=== PATIENT | male | born 1935 | race Caucasian/White ===

== ENCOUNTER 2017-10-15 01:02 | Inpatient (IN) | payer OTHER, MEDICARE ==
--- NOTE | 2017-10-15 01:10 | PDOC ---
History of Present Illness - General History Source: Patient Exam Limitations: No Limitations - History of Present Illness Initial Comments: 10/15/17 03:18 Patient is a 82 year old male with a significant past medical history of Prostate CA, cardiac stent, Tremors, who presents to the ED with complaints of right his pain, s/p fall that occured 1 hour prior to ED arrival. Patient reports dancing with friend when he slipped fell, landing on his right hip. He reports experiencing immediate pain following the fall, stating he was unable to get up secondary to the pain. Patient states he did not hit his head and remembers the entire fall. Denies chest pain, Sob. Denies nausea, vomiting. Denies fevers, chills. Denies loss of consciousness, change in vision, headache. Denies any other symptoms. Allergies: None Social history: Former smoker (Last 1987). Former drinker (Last 1981). No illicit drugs. Surgical history: Cardiac stents x13. Left leg sleeve s/p aneurysm. PMD: Not on staff. <Luis Hawkins - Last Filed: 10/15/17 03:20> <Patricia Lynn - Last Filed: 10/17/17 15:36> - General Stated Complaint: FALL Time Seen by Provider: 10/15/17 01:10 Past History <Luis Hawkins - Last Filed: 10/15/17 03:20> <Patricia Lynn - Last Filed: 10/17/17 15:36> - Past Medical History Allergies/Adverse Reactions: Allergies Allergy/AdvReac Type Severity Reaction Status Date / Time No Known Allergies Allergy Verified 10/15/17 01:34 Home Medications: Ambulatory Orders Atorvastatin Calcium 40 mg PO DAILY 10/15/17 Clopidogrel Bisulfate [Plavix] 75 mg PO DAILY 10/15/17 Isosorbide Mononitrate [Isosorbide Mononitrate ER] 120 mg PO DAILY 10/15/17 Primidone [Mysoline -] 50 mg PO BID 10/15/17 Sertraline HCl [Sertraline HCl] 50 mg PO DAILY 10/15/17 Review of Systems - Review of Systems Able to Perform ROS?: Yes Comments:: 10/15/17 03:18 GENERAL/CONSTITUTIONAL: No fever or chills. No weakness. HEAD, EYES, EARS, NOSE AND THROAT: No change in vision. No ear pain or discharge. No sore throat. CARDIOVASCULAR: No chest pain or shortness of breath. RESPIRATORY: No cough, wheezing, or hemoptysis. GASTROINTESTINAL: No nausea, vomiting, diarrhea or constipation. GENITOURINARY: No dysuria, frequency, or change in urination. MUSCULOSKELETAL: +Right hip pain. No muscle swelling No neck or back pain. SKIN: No rash NEUROLOGIC: No headache, vertigo, loss of consciousness, or change in strength/ sensation. ENDOCRINE: No increased thirst. No abnormal weight change. HEMATOLOGIC/LYMPHATIC: No anemia, easy bleeding, or history of blood clots. ALLERGIC/IMMUNOLOGIC: No hives or skin allergy. All Other Systems: Reviewed and Negative <Luis Hawkins - Last Filed: 10/15/17 03:20> *Physical Exam - Vital Signs Last Vital Signs Temp Pulse Resp BP Pulse Ox 97.9 F 64 16 162/79 96 10/15/17 01:10 10/15/17 01:10 10/15/17 01:10 10/15/17 01:10 10/15/17 01:10 - Physical Exam Comments: 10/15/17 03:20 GENERAL: Awake, alert, and fully oriented, in no acute distress HEAD: No signs of trauma EYES: PERRLA, EOMI, sclera anicteric, conjunctiva clear ENT: Auricles normal inspection, hearing grossly normal, nares patent, oropharynx clear without exudates. Moist mucosa NECK: Normal ROM, supple, no lymphadenopathy, JVD, or masses LUNGS: Breath sounds equal, clear to auscultation bilaterally. No wheezes, and no crackles HEART: Regular rate and rhythm, normal S1 and S2, no murmurs, rubs or gallops ABDOMEN: Soft, nontender, normoactive bowel sounds. No guarding, no rebound. No masses EXTREMITIES: +Right leg externally rotated and shortened. +Pain on right hip with movement of leg. Normal range of motion, no edema. No clubbing or cyanosis. No cords, erythema, or tenderness NEUROLOGICAL: Cranial nerves II through XII grossly intact. Normal speech, normal gait SKIN: Warm, Dry, normal turgor, no rashes or lesions noted. <Luis Hawkins - Last Filed: 10/15/17 03:20> ED Treatment Course - LABORATORY CBC & Chemistry Diagram: 10/15/17 01:41 10/15/17 01:41 - ADDITIONAL ORDERS Additional order review: Laboratory Results 10/15/17 10/15/17 10/15/17 01:41 01:41 01:41 PT with INR 11.10 INR 0.98 PTT (Actin FS) Sodium 142 Potassium 4.3 Chloride 107 Carbon Dioxide 26 Anion Gap 9 BUN 23 H Creatinine 1.1 Creat Clearance w eGFR > 60 Random Glucose 212 H Calcium 8.6 Total Bilirubin 0.3 AST 13 L ALT 21 Alkaline Phosphatase 76 Total Protein 6.5 Albumin 3.8 Blood Type B POSITIVE Antibody Screen Negative 10/15/17 01:41 PT with INR INR PTT (Actin FS) 24.0 L Sodium Potassium Chloride Carbon Dioxide Anion Gap BUN Creatinine Creat Clearance w eGFR Random Glucose Calcium Total Bilirubin AST ALT Alkaline Phosphatase Total Protein Albumin Blood Type Antibody Screen 10/15/17 01:41 RBC 4.03 MCV 89.5 MCHC 34.3 RDW 13.5 MPV 7.6 Neutrophils % 69.2 Lymphocytes % 16.4 Monocytes % 9.3 Eosinophils % 3.7 Basophils % 1.4 - Medications Given in the ED: ED Medications Discontinued Medications Generic Name Dose Route Start Last Admin Trade Name Freq PRN Reason Stop Dose Admin Morphine Sulfate 2 mg 10/15/17 01:30 10/15/17 02:03 Morphine Injection - IVPUSH 10/15/17 01:31 2 mg ONCE ONE Administration <Luis Hawkins - Last Filed: 10/15/17 03:20> - LABORATORY CBC & Chemistry Diagram: 10/17/17 13:50 10/17/17 06:35 <Patricia Lynn - Last Filed: 10/17/17 15:36> Medical Decision Making - Medical Decision Making 10/15/17 04:39 Pt tripped while he was dancing a slow foxtrot and he landed on his right hip, resulting in an intertrochanteric fracture. Pt has no other complaints. Pt has DM and CAD -13 stents in his heart - pt has a hx of prostate cancer 10/17/17 15:36 Pt admitted for his hip fx. <Patricia Lynn - Last Filed: 10/17/17 15:36> *DC/Admit/Observation/Transfer - Attestations Scribe Attestion: 10/15/17 03:18 Documentation prepared by Luis Hawkins, acting as director of medical review for Patricia Lynn MD/DO. <Luis Hawkins - Last Filed: 10/15/17 03:20> - Discharge Dispostion Admit: Yes <Patricia Lynn - Last Filed: 10/17/17 15:36> Diagnosis at time of Disposition: Hip fracture, Intertrochanteric fracture of right femur - Discharge Dispostion Condition at time of disposition: Guarded
[2017-10-15] MEDS ORDERED: morphine CARPU-JECT 2 MG/1 ML DISP.SYRIN IVPUSH ONE ×2 (01:30→10:34)
[2017-10-15] MEDS ORDERED: MORPHINE SULFATE 10 MG/1 ML *VIAL ONE ×4 (01:36→18:51)
[2017-10-15 01:53] LABS: BASO % 1.4 % (0-2.0); EOS % 3.7 % (0-4.5); HEMATOCRIT 36.1 % (35.4-49); HEMOGLOBIN 12.4 GM/dL (11.7-16.9); LYMPH % 16.4 % (8-40); MCH 30.7 pg (25.7-33.7); MCHC 34.3 g/dl (32.0-35.9); MEAN CELL VOLUME 89.5 fl (80-96); MEAN PLT VOLUME 7.6 fl (7.5-11.1); MONO % 9.3 % (3.8-10.2); NEUT % 69.2 % (42.8-82.8); PLATELET COUNT 166 K/MM3 (134-434); RBC 4.03 M/mm3 (4.00-5.60); RDW 13.5 % (11.9-15.9); WHITE BLOOD COUNT 6.5 K/mm3 (4.0-10.0)
[2017-10-15 02:04] LABS: INR 0.98 (0.82-1.09); PROTHROMBIN TIME (PATIENT) 11.1 SEC (9.98-11.88)
[2017-10-15 02:17] LABS: ALBUMIN 3.8 g/dl (3.4-5.0); ALK PHOS 76 U/L (45-117); ANION GAP 9 (8-16); BILIRUBIN,TOTAL 0.3 mg/dL (0.2-1.0); BLOOD UREA NITROGEN 23 mg/dL (7-18); CALCIUM 8.6 mg/dL (8.5-10.1); CHLORIDE 107 mmol/L (98-107); CO2 26 mmol/L (21-32); CREATININE 1.1 mg/dL (0.7-1.3); GLUCOSE,RANDOM 212 mg/dL (74-106); POTASSIUM 4.3 mmol/L (3.5-5.1); SGOT/AST 13 U/L (15-37); SGPT/ALT 21 U/L (12-78); SODIUM 142 mmol/L (136-145); TOT PROT 6.5 g/dl (6.4-8.2)
[2017-10-15] MEDS ORDERED: ACETAMINOPHEN 1000 MG/100 ML VIAL (NON FORMULARY) IVPB ONE (03:04)
--- NOTE | 2017-10-15 03:06 | PN ---
Teaching Attending Note Name of Resident: Eduar Rangel ATTENDING PHYSICIAN STATEMENT I saw and evaluated the patient. I reviewed the resident's note and discussed the case with the resident. I agree with the resident's findings and plan as documented. SUBJECTIVE: 82 M with pmhx. of HTN, hld, cardiac stent X 13, NIDDM who presents after mechanical fall. Pt. was dancing when he slipped and fell. No chest pain, pressure or shortness of breath. Notes he missed his last cardio appt. begining of this month due to the flu. Denies any headache, dizziness, or lightheadedness. OBJECTIVE: Physical: VS: Vital Signs Period Temp Pulse Resp BP Sys/Hernandez Pulse Ox Last 24 Hr 97.9 F 64 16 162/79 96 GEN: NAD, Resting in bed, AA0X3 HEENT: NCAT, PERRL, throat without erythema or exudates CARD: RRR S1, S2 RESP: CTAB ABD: BSx4, NTD to palpation EXT: - C/C/E, R. Leg externally rotated CBCD WBC 6.5 K/mm3 (4.0-10.0) 10/15/17 01:41 RBC 4.03 M/mm3 (4.00-5.60) 10/15/17 01:41 Hgb 12.4 GM/dL (11.7-16.9) 10/15/17 01:41 Hct 36.1 % (35.4-49) 10/15/17 01:41 MCV 89.5 fl (80-96) 10/15/17 01:41 MCHC 34.3 g/dl (32.0-35.9) 10/15/17 01:41 RDW 13.5 % (11.9-15.9) 10/15/17 01:41 Plt Count 166 K/MM3 (134-434) 10/15/17 01:41 MPV 7.6 fl (7.5-11.1) 10/15/17 01:41 CMP Sodium 142 mmol/L (136-145) 10/15/17 01:41 Potassium 4.3 mmol/L (3.5-5.1) 10/15/17 01:41 Chloride 107 mmol/L (98-107) 10/15/17 01:41 Carbon Dioxide 26 mmol/L (21-32) 10/15/17 01:41 Anion Gap 9 (8-16) 10/15/17 01:41 BUN 23 mg/dL (7-18) H 10/15/17 01:41 Creatinine 1.1 mg/dL (0.7-1.3) 10/15/17 01:41 Creat Clearance w eGFR > 60 (>60) 10/15/17 01:41 Random Glucose 212 mg/dL (74-106) H 10/15/17 01:41 Calcium 8.6 mg/dL (8.5-10.1) 10/15/17 01:41 Total Bilirubin 0.3 mg/dL (0.2-1.0) 10/15/17 01:41 AST 13 U/L (15-37) L 10/15/17 01:41 ALT 21 U/L (12-78) 10/15/17 01:41 Alkaline Phosphatase 76 U/L (45-117) 10/15/17 01:41 Total Protein 6.5 g/dl (6.4-8.2) 10/15/17 01:41 Albumin 3.8 g/dl (3.4-5.0) 10/15/17 01:41 RIGHT HIP XRAY- R. Intertrochanteric Fx EKG: NSR, TWI lateral leads (no prior EKG in system) CXR-NO Acute process ASSESSMENT AND PLAN: 82 M with hx of 1.) R. Intertrochanteric Fx - NPO - Type & Screen - Ortho consult - Pain Control - Repeat CBC - Hold ASA/Plavix 2.) Hx. of CAD w. Stents - TWI on EKG - TROP - Repeat EKG - Cardio consult - Obtain records of medications and prior lund at [facility] [employer] 3.) DM - FS - RAISS 4.) Dvt Ppx - As per Ortho Place in Open Utility
[2017-10-15] MEDS ORDERED: ACETAMINOPHEN INJECTION 100 ML IVPB ONE (03:27)
--- NOTE | 2017-10-15 03:58 | HP ---
CHIEF COMPLAINT: Mechanical fall HISTORY OF PRESENT ILLNESS: 82 y/o m with PMH of HTN, HLD, DM CAD( [address]) prsotate cancer( s/p RT and chemo) who was brought to ED after fall and found to have intertrochntric fracture. Patient reports that he was dancing and slipped. Denies lightheadedness, dizziness, chest pain, sob, palpitations, nausea, vomiting Relay Worker Dr Rosario [phone] ER course was notable for: (1) xray : intertrochntric fracture (2)cbc, cmp, pt/inr (3)blood type and screen, ekg Recent Travel: no PAST MEDICAL HISTORY: htn, dm, hld, cad, ca prostate ( s/p RT and chemo) PAST SURGICAL HISTORY: Hernia, left femoral artery aneurysm repair Social History: Smoking: stopped in 1981 Alcohol: stopped in 1982 Family History: denies Allergies No Known Allergies Allergy (Verified 10/15/17 01:34) HOME MEDICATIONS: REVIEW OF SYSTEMS CONSTITUTIONAL: Absent: fever, chills, diaphoresis, HEENT: Absent: rhinorrhea, nasal congestion, throat pain, t CARDIOVASCULAR: Absent: chest pain, syncope, palpitations, irregular heart rate, lightheadedness , peripheral edema RESPIRATORY: Absent: cough, shortness of breath, dyspnea with exertion, orthopnea, wheezing, GASTROINTESTINAL: Absent: abdominal pain, abdominal distension, nausea, GENITOURINARY: Absent: dysuria, frequency, urgency, hesitancy, MUSCULOSKELETAL: pain in left leg at fracture site SKIN: Absent: rash, itching, pallor NEUROLOGIC: Absent: headache, focal weakness or paresthesias, dizziness, unsteady gait, seizure, mental status changes, bladder or bowel incontinence PSYCHIATRIC: Absent: anxiety, depression, PHYSICAL EXAMINATION Vital Signs - 24 hr 10/15/17 01:10 Temperature 97.9 F Pulse Rate 64 Respiratory 16 Rate Blood Pressure 162/79 O2 Sat by Pulse 96 Oximetry (%) GENERAL: Awake, alert, and fully oriented, HEAD: Normal with no signs of trauma. EARS, NOSE, THROAT: Ears normal, nares patent, oropharynx clear without exudates. dry mucus membrane NECK: Normal range of motion, supple without lymphadenopathy, JVD, LUNGS: Breath sounds equal, clear to auscultation bilaterally. No wheezes, and no crackles. No accessory muscle use. HEART: Regular rate and rhythm, normal S1 and S2 without murmur, rub or gallop. ABDOMEN: Soft, nontender, not distended, normoactive bowel sounds, no guarding, no rebound, no masses. No hepatomegaly or splenomegaly. UPPER EXTREMITIES: 2+ pulses, warm, well-perfused. No cyanosis. chronic tremors LOWER EXTREMITIES: warm, No calf tenderness. No peripheral edema. right leg short and externally rotated NEUROLOGICAL: Cranial nerves II-XII intact. Normal speech. PSYCHIATRIC: Cooperative. Good eye contact. SKIN: Warm, dry, Laboratory Results - last 24 hr 10/15/17 10/15/17 10/15/17 01:41 01:41 01:41 WBC 6.5 RBC 4.03 Hgb 12.4 Hct 36.1 MCV 89.5 MCH 30.7 MCHC 34.3 RDW 13.5 Plt Count 166 MPV 7.6 Neutrophils % 69.2 Lymphocytes % 16.4 Monocytes % 9.3 Eosinophils % 3.7 Basophils % 1.4 PT with INR INR PTT (Actin FS) 24.0 L Sodium Potassium Chloride Carbon Dioxide Anion Gap BUN Creatinine Creat Clearance w eGFR Random Glucose Calcium Total Bilirubin AST ALT Alkaline Phosphatase Total Protein Albumin Blood Type B POSITIVE Antibody Screen Negative 10/15/17 10/15/17 01:41 01:41 WBC RBC Hgb Hct MCV MCH MCHC RDW Plt Count MPV Neutrophils % Lymphocytes % Monocytes % Eosinophils % Basophils % PT with INR 11.10 INR 0.98 PTT (Actin FS) Sodium 142 Potassium 4.3 Chloride 107 Carbon Dioxide 26 Anion Gap 9 BUN 23 H Creatinine 1.1 Creat Clearance w eGFR > 60 Random Glucose 212 H Calcium 8.6 Total Bilirubin 0.3 AST 13 L ALT 21 Alkaline Phosphatase 76 Total Protein 6.5 Albumin 3.8 Blood Type Antibody Screen ASSESSMENT/PLAN: 82 y/o m with PMH of HTN, HLD, DM CAD( [address]) prsotate cancer( s/p RT and chemo) who was brought to ED after fall and found to have intertrochntric fracture intertrochatric fracture R side. NPO blood type and screen pending INR pending pain control with morphine. ortho consult hold aspirin and plavix for now HTN monitor need to confirm meds HLD on lipitor get lipid profile. CAD EKG shows T wave incersion in lateral leads. Bas line ekg not available. cardiac monitoring repeat ekg and trop i in morning Cardiology consult Hold aspirin and plavix for surgery. His wastewater analyst DR Rosario [phone]. Need to call wastewater analyst for further information. DM hold metformin BGM q6h novalog insulin sliding scale. fluid: NS 42ml/hr electrolyte: repeat in am nutrition: NPO for now DVT pro: scd on left leg Gi pro: zantac dispo: tele Visit type - Emergency Visit Emergency Visit: Yes Care time: The patient presented to the Emergency Department on the above date and was hospitalized for further evaluation of their emergent condition. - New Patient This patient is new to me today: Yes Date on this admission: 10/15/17 - Critical Care Critical Care patient: No
[2017-10-15] MEDS: SODIUM CHLORIDE 1,000 ML IV SCH (04:31)
[2017-10-15] MEDS: MORPHINE SULFATE 10 MG/1 ML *VIAL IVPUSH PRN ×3 (06:47→18:55)
[2017-10-15 06:57] LABS: URINE APPEARANCE CLEAR; URINE BILIRUBIN NEGATIVE (NEGATIVE); URINE BLOOD NEGATIVE (NEGATIVE); URINE COLOR YELLOW; URINE GLUCOSE (UA) 1+ (NEGATIVE); URINE KETONE NEGATIVE (NEGATIVE); URINE LEUK ESTERASE NEGATIVE (NEGATIVE); URINE NITRITE NEGATIVE (NEGATIVE); URINE PROTEIN NEGATIVE (NEGATIVE)
[2017-10-15] MEDS: INSULIN SLIDING SCALE (NOVOLOG) 1 VIAL SQ SCH ×4 (07:48→23:32)
[2017-10-15 08:41] LABS: BASO % 0.9 % (0-2.0); EOS % 2.4 % (0-4.5); HEMATOCRIT 33.8 % (35.4-49); HEMOGLOBIN 11.5 GM/dL (11.7-16.9); MCH 30.4 pg (25.7-33.7); MEAN CELL VOLUME 89.2 fl (80-96); MEAN PLT VOLUME 7.6 fl (7.5-11.1); MONO % 11.3 % (3.8-10.2); NEUT % 71.4 % (42.8-82.8); PLATELET COUNT 152 K/MM3 (134-434); RBC 3.79 M/mm3 (4.00-5.60); RDW 13.2 % (11.9-15.9); WHITE BLOOD COUNT 9.1 K/mm3 (4.0-10.0)
[2017-10-15 08:48] LABS: ALBUMIN 3.5 g/dl (3.4-5.0); ANION GAP 7 (8-16); BILIRUBIN,TOTAL 0.4 mg/dL (0.2-1.0); BLOOD UREA NITROGEN 20 mg/dL (7-18); CALCIUM 7.5 mg/dL (8.5-10.1); CHLORIDE 109 mmol/L (98-107); CHOLESTEROL 113 mg/dL (50-200); CO2 27 mmol/L (21-32); GLUCOSE,RANDOM 111 mg/dL (74-106); LDL CHOLESTEROL (ONLY SJRH) 67 mg/dL (5-100); MAGNESIUM 1.9 mg/dL (1.8-2.4); PHOSPHOROUS 3.1 mg/dL (2.5-4.9); SGOT/AST 13 U/L (15-37); SGPT/ALT 19 U/L (12-78); SODIUM 143 mmol/L (136-145); TOT PROT 6.1 g/dl (6.4-8.2); TRIGLYCERIDES 99 mg/dL (35-160)
[2017-10-15 08:49] LABS: ALK PHOS 72 U/L (45-117); HDL CHOLESTEROL 35 mg/dL (40-60)
[2017-10-15] MEDS ORDERED: FAMOTIDINE IV 20 MG/12 ML VIAL IVPUSH SCH (10:00)
--- NOTE | 2017-10-15 10:09 | CON.ORTH ---
Consult Reason for Consultation:: right hip fx - Alcohol/Substance Use Hx Alcohol Use: Yes - Smoking History Smoking history: Former smoker Have you smoked in the past 12 months: No If you are a former smoker, when did you quit?: 1987 Home Medications - Allergies Allergies/Adverse Reactions: Allergies Allergy/AdvReac Type Severity Reaction Status Date / Time No Known Allergies Allergy Verified 10/15/17 01:34 - Home Medications Home Medications: Ambulatory Orders Unobtainable [Unobtainable] 10/15/17 Physical Exam for Ortho Vital Signs: Vital Signs Temperature 98.0 F 10/15/17 07:50 Pulse Rate 90 10/15/17 07:50 Respiratory Rate 20 10/15/17 07:50 Blood Pressure 160/80 10/15/17 07:50 O2 Sat by Pulse Oximetry (%) 97 10/15/17 07:50 Labs: CBC, BMP 10/15/17 07:42 10/15/17 07:42 INR, PTT INR 0.98 (0.82-1.09) 10/15/17 01:41 - Lower Extremity Hip: Yes: Right, Decreased ROM, Leg Externally Rotated, Leg Shortened, Pain, Swelling (nvi) Imaging - Results X-ray: Report Reviewed, Image Reviewed Assessment/Plan 82 y/o m with PMH of HTN, HLD, DM CAD( [address]) prostate cancer( s/p RT and chemo) who was brought to ED after fall and found to have IT fracture. Patient reports that he was dancing and slipped. Denies lightheadedness, dizziness, chest pain, sob, palpitations, nausea, vomiting. a/p right IT fx Risks and benefits were d/w pt in detail will need right IM gamma nail OR once cleared tentatively for tomorrow afternoon pending clearance surgical clearance NPo after midnight hold ASA and plavix d/w Dr. Romano
--- NOTE | 2017-10-15 13:02 | EKG ---
Test Reason : Blood Pressure : / mmHG Vent. Rate : 065 BPM Atrial Rate : 065 BPM P-R Int : 176 ms QRS Dur : 108 ms QT Int : 424 ms P-R-T Axes : 069 -27 103 degrees QTc Int : 440 ms NORMAL SINUS RHYTHM T WAVE ABNORMALITY, CONSIDER LATERAL ISCHEMIA ABNORMAL ECG NO PREVIOUS ECGS AVAILABLE Confirmed by SUE REICH MD ([id number]) on 10/15/2017 1:01:53 PM Referred By: Confirmed By:SUE REICH MD
--- NOTE | 2017-10-15 14:32 | CON.CARD ---
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 Patient reports dancing with friend when he slipped fell, landing on his right hip, no syncope/presyncope. Of note, this is his 2nd fall this year. No angina since last JANES. Is overall active, can walk up multiple flights of steps without stopping. + rt hip pain, + erythema of rt eye --> recent burst blood vessel. recent uri with cough, congestion last month --> resolved. no h/o chf, cva. Denies chest pain, Sob, orthopnea, pnd, le edema. Denies f/c/s, n/v/d, visual disturbances, rash, headache. Cards: [place] [place] pmhx/pshx: per phi, Left leg sleeve s/p aneurysm. Social history: Former smoker (Last 1987). Former drinker (Last 1981). No illicit drugs. fam hx: no premature cad ros: per hpi Ambulatory Orders Atorvastatin Calcium 40 mg PO DAILY 10/15/17 Clopidogrel Bisulfate [Plavix] 75 mg PO DAILY 10/15/17 Isosorbide Mononitrate [Isosorbide Mononitrate ER] 120 mg PO DAILY 10/15/17 Sertraline HCl [Sertraline HCl] 50 mg PO DAILY 10/15/17 Per office notes, additionally on asa 81 mg/day, norvasc 10 mg/day, Current Medications Sodium Chloride (Normal Saline -) 1,000 mls @ 42 mls/hr IV ASDIR AYALA Last Admin: 10/15/17 04:31 Dose: 42 mls/hr Famotidine (Pepcid 20 Mg/12 Ml Push) 20 mg in 12 mls @ 144 mls/hr IVPUSH BID AYALA Last Admin: 10/15/17 10:08 Dose: 144 mls/hr Insulin Aspart (Novolog Vial Sliding Scale -) 1 vial SQ ACHS AYALA PRN Reason: Protocol Last Admin: 10/15/17 11:12 Dose: Not Given Morphine Sulfate (Morphine Injection -) 2 mg IVPUSH Q4H PRN PRN Reason: PAIN LEVEL 1-5 Last Admin: 10/15/17 06:47 Dose: 2 mg Vital Signs - 24 hr 10/15/17 10/15/17 10/15/17 01:10 06:59 07:50 Temperature 97.9 F 98.0 F Pulse Rate 64 Pulse Rate [ 98 H 90 Right Apical] Respiratory 16 16 20 Rate Blood Pressure 162/79 Blood Pressure 157/78 160/80 [Right Arm] O2 Sat by Pulse 96 97 97 Oximetry (%) 10/15/17 10/15/17 11:31 14:24 Temperature 98.0 F 98.0 F Pulse Rate Pulse Rate [ 89 75 Right Apical] Respiratory 20 19 Rate Blood Pressure Blood Pressure 156/80 143/85 [Right Arm] O2 Sat by Pulse 98 98 Oximetry (%) Intake & Output 10/13/17 10/14/17 10/15/17 10/16/17 07:59 07:59 07:59 07:59 Weight 192 lb nad, calm jvd flat, neck supple erythema of eye rrr nl s1, s2 no mrg ctab, nl effort + bs soft nt nd trace edema, no c/c diminished dp/pt no carotid bruits no jaundice, diaphoresis aaox3 CBC, BMP 10/15/17 07:42 10/15/17 07:42 Laboratory Tests 10/15/17 07:42 Magnesium 1.9 Total Bilirubin 0.4 D AST 13 L ALT 19 Alkaline Phosphatase 72 Troponin I < 0.02 Albumin 3.5 Triglycerides 99 Cholesterol 113 Total LDL Cholesterol 67 HDL Cholesterol 35 L ekg 09/2017: nsr, leftward axis. lateral twi. similar to priors. (longstanding lateral twi on prior ekg's from [facility] [place]). tele: sr cxr: no acute pathology cath [facility] [place] 04/2017 (for angina): lvedp 14. EF 60%, no rwma. mild disease in lad and lcx. patent plad, pLcx, dLcx, om1, om2 stents. mild disease in prrca and mrca. patent mrca stent. 50-60% drca with prior stent, RPL1 90-95% ISR --> [place]. [place] [facility] [place]l lv/rv size/fn. diastolic dysfunction. 1+ ar, + mac, 1+ mr. no sig phtn. 4.0 cm sinus, 3.9 asc, --> smaller on cta. 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 mechanical fall s/p hip fracture - 2nd fall this year. states he has difficulty with balance and ? neuropathy. - ongoing mgm't per pmd/surgery. Pre-op clearance - patient ~ 6 mo since janes. Given necessity of surgery, reasonable to hold plavix and con't asa monotherapy alone shruthi-operatively. last dose of plavix saturday 10/14. Did not receive asa today, will order. Discussed with interventionalist at [facility] [place] and they are in agreement. Patient's software development specialist Dr. Rosario to be notified. Discussed with inpatient pmd. - Patient with good functional capacity and is asx/stable from CV perspective with preserved EF. No need for further CV testing prior to surgery. Based on RCRI, age and functional capacity, patient with low-intermediate risk for shruthi- operative CV events. Patient counseled on risk. CAD s/p NQWMI and multiple ISR/PCI (most recent 04/2017) on DAPT/HL - nl LVEF, no anginal sx's. - multiple + prior stents to at least plad, pLcx, dLcx, om1, om2, prrca, mrca, drca, RPL with ISR and recurrent stent placement to at least om2, RPL and possibly more. - On norvasc and imdur as anti-anginal. Con't statin - Shruthi-operative anti-platelet mgmt as mentioned above. htn - angioedema to ACEI - resume home regimen. monitor. 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 - followed by vascular as outpatient > 40 min spent reviewing/obtaining outside hospital records and coordinating care with interventional cardiology and pmd
--- NOTE | 2017-10-15 14:44 | PN ---
Teaching Attending Note Name of Resident: Valeria Perry ATTENDING PHYSICIAN STATEMENT I saw and evaluated the patient. I reviewed the resident's note and discussed the case with the resident. I agree with the resident's findings and plan as documented. SUBJECTIVE:continues to have pain but has only requested pain medication once. states he was dancing and slipped. denies any symptoms prior to or after the fall. Saw his director of customer service a few months ago and had cath with stent placement. denies CP, SOB, fever, chills, N/V/C/D, no LOC. did not hit his head. no CP or dysp OBJECTIVE: Last Vital Signs Temp Pulse Resp BP Pulse Ox 98.0 F 75 19 143/85 98 10/15/17 14:24 10/15/17 14:24 10/15/17 14:24 10/15/17 14:24 10/15/17 14:24 General NAD CV S1 S2 RRR no murmur/rub/gallop Lungs CTA B/L no wheezing/rales/rhonchi Extremities RLE shortened and externally rotated ASSESSMENT AND PLAN: 82yo M with PMH HTN, dyslipidemia and CAD s/p 13 stents with mechanical fall and R intertrochanteric fracture 1. R intertrochanteric fracture- s/p mechanical fall. NPO tonight for gamma nail in the AM. encouraged pt to request pain medications. will hold asa/ plavix. ortho on board. cardio eval prior to surgery. PT assessment post surgery 2. HTN- above goal.likely due to pain. resume home medications. consider increasing medications if remains uncontrolled. 3. CAD s/p stent- hold asa/plvix. cardio eval 4. DVT ppx- start hep sq. will hold AM dose 5. will need JAIRON placement post-op.
[2017-10-15] MEDS ORDERED: HEPARIN NA (PORCINE) 5,000 UNITS/ML 1ML VIAL SQ SCH (22:00)
[2017-10-15] MEDS ORDERED: ATORVASTATIN CA 40 MG TABLET (FP) PO SCH (22:00)
[2017-10-15 22:56] VITALS: BMI 26.1
[2017-10-15] MEDS: FAMOTIDINE 20 MG/50 ML IVPB 20 MG/50 ML MG IVPB SCH (23:19)
[2017-10-15] MEDS: ASPIRIN COATED 81 MG TABLET.EC PO SCH (23:20)
--- NOTE | 2017-10-16 06:02 | PN ---
Physical Exam: SUBJECTIVE: Patient seen and examined by me this AM - Going for surgery today for intertronchanteric fx correction. No major overnight events. Pt with productive cough. Still with pain in R hip. States his shakes are worse. Complaining of constipation. Pt denies any WARD/vision changes, fevers, chills, Ab pain, CP, chest tightness, LE edema, peripheral weakness/numbness OBJECTIVE: Vital Signs Intake & Output 10/13/17 10/14/17 10/15/17 10/16/17 23:59 23:59 23:59 23:59 Output Total 500 Balance -500 Weight 82.645 kg Period Temp Pulse Resp BP Sys/Hernandez Pulse Ox Last 24 Hr 98.0 F-98.2 F 68-98 16-20 134-167/60-86 97-98 GENERAL: Elderly man, lying bed, with BL oscillating hand shaking. The patient is awake, alert, and fully oriented, in no acute distress. HEAD: Normal with no signs of trauma. EYES: PERRL, extraocular movements intact, sclera anicteric, conjunctiva clear. No ptosis. ENT: Blood on interior margin of upper lip. Ears normal, nares patent, oropharynx clear without exudates, moist mucous membranes. NECK: Trachea midline, full range of motion, supple. LUNGS: BL upper airway congestion. Trace rhonchi at bases, R>L. no wheezes, no crackles, no accessory muscle use. HEART: Regular rate and rhythm, S1, S2 without murmur, rub or gallop. ABDOMEN: Soft, nontender, nondistended, normoactive bowel sounds, no guarding, no rebound, no hepatosplenomegaly, no masses. EXTREMITIES: Bruise on R underarm. R leg shortened and externally rotated. 2+ pulses, warm, well-perfused, no edema. Good pulses, preserved sensation distally. NEUROLOGICAL: Cranial nerves II through XII grossly intact. Normal speech, gait not observed. PSYCH: Normal mood, normal affect. SKIN: Warm, dry, normal turgor, no rashes or lesions noted Laboratory Results - last 24 hr CBC, BMP 10/15/17 07:42 10/15/17 07:42 10/15/17 10/15/17 10/15/17 06:51 07:41 07:42 WBC 9.1 D RBC 3.79 L Hgb 11.5 L Hct 33.8 L MCV 89.2 MCH 30.4 MCHC 34.0 RDW 13.2 Plt Count 152 MPV 7.6 Neutrophils % 71.4 Lymphocytes % 14.0 Monocytes % 11.3 H Eosinophils % 2.4 Basophils % 0.9 Sodium Potassium Chloride Carbon Dioxide Anion Gap BUN Creatinine Creat Clearance w eGFR POC Glucometer [phone] Random Glucose Calcium Phosphorus Magnesium Total Bilirubin AST ALT Alkaline Phosphatase Troponin I Total Protein Albumin Triglycerides Cholesterol Total LDL Cholesterol HDL Cholesterol Urine Color Yellow Urine Appearance Clear Urine pH 5.0 Ur Specific [place] 1.025 Urine Protein Negative Urine Glucose (UA) 1+ H Urine Ketones Negative Urine Blood Negative Urine Nitrite Negative Urine Bilirubin Negative Urine Urobilinogen 2.0 Ur Leukocyte Esterase Negative 10/15/17 10/15/17 10/15/17 07:42 11:11 16:45 WBC RBC Hgb Hct MCV MCH MCHC RDW Plt Count MPV Neutrophils % Lymphocytes % Monocytes % Eosinophils % Basophils % Sodium 143 Potassium 4.0 Chloride 109 H Carbon Dioxide 27 Anion Gap 7 L BUN 20 H Creatinine 1.0 Creat Clearance w eGFR > 60 POC Glucometer 153.38709 [phone] Random Glucose 111 H D Calcium 7.5 L Phosphorus 3.1 Magnesium 1.9 Total Bilirubin 0.4 D AST 13 L ALT 19 Alkaline Phosphatase 72 Troponin I < 0.02 Total Protein 6.1 L Albumin 3.5 Triglycerides 99 Cholesterol 113 Total LDL Cholesterol 67 HDL Cholesterol 35 L Urine Color Urine Appearance Urine pH Ur Specific [place] Urine Protein Urine Glucose (UA) Urine Ketones Urine Blood Urine Nitrite Urine Bilirubin Urine Urobilinogen Ur Leukocyte Esterase 10/15/17 23:28 WBC RBC Hgb Hct MCV MCH MCHC RDW Plt Count MPV Neutrophils % Lymphocytes % Monocytes % Eosinophils % Basophils % Sodium Potassium Chloride Carbon Dioxide Anion Gap BUN Creatinine Creat Clearance w eGFR POC Glucometer 148 Random Glucose Calcium Phosphorus Magnesium Total Bilirubin AST ALT Alkaline Phosphatase Troponin I Total Protein Albumin Triglycerides Cholesterol Total LDL Cholesterol HDL Cholesterol Urine Color Urine Appearance Urine pH Ur Specific [place] Urine Protein Urine Glucose (UA) Urine Ketones Urine Blood Urine Nitrite Urine Bilirubin Urine Urobilinogen Ur Leukocyte Esterase Active Medications Generic Name Dose Route Start Last Admin Trade Name Freq PRN Reason Stop Dose Admin Aspirin 81 mg 10/15/17 20:00 10/15/17 23:20 Ecotrin - PO 81 mg DAILY AYALA Administration Atorvastatin Calcium 40 mg 01/29/18 22:00 10/15/17 23:20 Lipitor - PO 40 mg HS AYALA Administration Heparin Sodium (Porcine) 5,000 unit 10/15/17 22:00 10/15/17 23:20 Heparin - SQ 5,000 unit BID AYALA Administration Sodium Chloride 1,000 mls @ 42 mls/hr 10/15/17 04:15 10/15/17 04:31 Normal Saline - IV 42 mls/hr ASDIR AYALA Administration Famotidine/Sodium Chloride 20 mg in 50 mls @ 100 mls/hr 10/15/17 22:45 23:19 Pepcid 20 Mg Premixed Ivpb - IVPB 100 mls/hr BID AYALA Administration Insulin Aspart 1 vial 10/15/17 07:00 10/15/17 23:32 Novolog Vial Sliding Scale - SQ Not Given ACHS AYALA Protocol Morphine Sulfate 2 mg 10/15/17 04:04 10/15/17 18:55 Morphine Injection - IVPUSH 2 mg Q4H PRN Administration PAIN LEVEL 1-5 No micro CXR 10/15 - No acute pathology Hip/pelvis XR 10/15 - An AP view the pelvis and images of the right hip reveal an acute right femoral intertrochanteric fracture with varus deformity. There are pelvic clips and penile prosthesis. There is an aorto iliac vascular stent. The other bones are intact. EKG 10/15 - NSR 65, LAD, TWIs in lateral leads, qtc 440 ASSESSMENT/PLAN: 82 y/o m with PMH of HTN, HLD, DM, CAD(x13 stents) prostate cancer(s/p RT and chemo), who was brought to ED after fall and found to have intertrochanteric fracture. #R Intertrochanteric fracture - Imaging confirmed - NPO after midnight - OR today. Plavix held during admission, ASA continued per cardiology recs. Ortho aware, pt clear for surgery - Morphine for pain control - Post-op management per surgical team - ISS - Phenergan, zofran for post-op n/v #HTN -monitor -Norvasc 10mg #HLD - c/w home lipitor -Lipid panel normal #CAD - EKG with lateral lead TWs; no change since prior ekg; american history professor, Dr Rosario [phone]. -cardiac monitoring -trops neg x2 -Cardiology consult, recs appreciated - Imdur 120mg daily -cont asa per cards, hold plavix pre-op #DM -hold metformin -BGM q6h -ISS #Constipation - Senna, colace PPX Lovenox 40mg qD Zantac FEN NS 42cc/hr Daily BMP NPO after midnight, diabetic diet after med-surg. Dispo to [facility] d/w attending, Dr. Amanda Peralta, PGY1 Visit type - Emergency Visit Emergency Visit: Yes ED Registration Date: 10/15/17 Care time: The patient presented to the Emergency Department on the above date and was hospitalized for further evaluation of their emergent condition. - New Patient This patient is new to me today: Yes Date on this admission: 10/16/17 - Critical Care Critical Care patient: No
[2017-10-16] MEDS: INSULIN SLIDING SCALE (NOVOLOG) 1 VIAL SQ SCH ×4 (06:38→21:20)
[2017-10-16] MEDS ORDERED: amLODIPine BESYLATE 10 MG TABLET (FP) PO SCH (10:00)
[2017-10-16] MEDS: ASPIRIN COATED 81 MG TABLET.EC PO SCH ×2 (10:30→11:20)
[2017-10-16] MEDS: FAMOTIDINE 20 MG/50 ML IVPB 20 MG/50 ML MG IVPB SCH ×2 (10:31→21:20)
[2017-10-16] MEDS: SODIUM CHLORIDE 1,000 ML IV SCH ×2 (10:32→17:16)
[2017-10-16 11:47] LABS: HEMATOCRIT 31.6 % (35.4-49); HEMOGLOBIN 10.9 GM/dL (11.7-16.9); MCH 30.1 pg (25.7-33.7); MCHC 34.4 g/dl (32.0-35.9); MEAN CELL VOLUME 87.6 fl (80-96); MEAN PLT VOLUME 7.1 fl (7.5-11.1); PLATELET COUNT 129 K/MM3 (134-434); RBC 3.61 M/mm3 (4.00-5.60); RDW 13.5 % (11.9-15.9); WHITE BLOOD COUNT 9.2 K/mm3 (4.0-10.0)
[2017-10-16] MEDS ORDERED: ONDANSETRON 4 MG/2 ML VIAL IVPUSH PRN ×2 (11:50→13:34)
[2017-10-16] MEDS ORDERED: PROMETHAZINE HCL 25 MG/1 ML VIAL IVPUSH PRN ×2 (11:50→13:34)
[2017-10-16 11:57] LABS: INR 1.14 (0.82-1.09); PROTHROMBIN TIME (PATIENT) 12.9 SEC (9.98-11.88)
[2017-10-16] MEDS ORDERED: PROPOFOL 20 ML ONE (12:00)
[2017-10-16] MEDS ORDERED: LACTATED RINGERS SOLUTION 1,000 ML IV SCH ×2 (12:00→13:34)
[2017-10-16] MEDS ORDERED: MIDAZOLAM HCL 2 MG/2 ML SINGLE DOSE VIAL ONE (12:01)
[2017-10-16 12:09] LABS: ALBUMIN 3.4 g/dl (3.4-5.0); ANION GAP 7 (8-16); BLOOD UREA NITROGEN 12 mg/dL (7-18); CALCIUM 7.5 mg/dL (8.5-10.1); CHLORIDE 106 mmol/L (98-107); CO2 26 mmol/L (21-32); CREATININE 0.7 mg/dL (0.7-1.3); GLUCOSE,RANDOM 134 mg/dL (74-106); POTASSIUM 3.8 mmol/L (3.5-5.1); SGOT/AST 24 U/L (15-37); SGPT/ALT 18 U/L (12-78); SODIUM 139 mmol/L (136-145)
[2017-10-16 12:10] LABS: ALK PHOS 76 U/L (45-117); BILIRUBIN,TOTAL 1.1 mg/dL (0.2-1.0); TOT PROT 5.9 g/dl (6.4-8.2)
[2017-10-16] MEDS ORDERED: SODIUM CHLORIDE 0.9% P/F 10 ML VIAL IJ ONE (12:19)
[2017-10-16] MEDS ORDERED: ceFAZolin SODIUM 1 GM VIAL ONE (12:19)
[2017-10-16] MEDS ORDERED: ceFAZolin SODIUM 1 GM VIAL IVPB ONE (12:22)
[2017-10-16] MEDS ORDERED: KETOROLAC TROMETHAMINE 30 MG/1 ML VIAL ONE (12:48)
--- NOTE | 2017-10-16 13:00 | OP ---
Operative Note - Note: Operative Date: 10/16/17 ([facility]) Pre-Operative Diagnosis: right IT fx Operation: right IM gamma nail Post-Operative Diagnosis: Same as Pre-op Surgeon: Laron Romano Delivery Mgr: Frankie La Anesthesiologist/ICE CREAM MIXER: Juan M Da Silva Anesthesia: General Estimated Blood Loss (mls): 50 Operative Report Dictated: Yes
[2017-10-16] MEDS ORDERED: MORPHINE SULFATE 10 MG/1 ML *VIAL IVPUSH PRN (13:34)
--- NOTE | 2017-10-16 13:38 | PN ---
Progress Note (short form) - Note Progress Note: CC: pre-op clearance S: s/p surgery today. no complications. no cp, palps, dizziness, sob Current Medications Amlodipine Besylate (Norvasc -) 10 mg PO DAILY [facility] Aspirin (Ecotrin -) 81 mg PO DAILY [facility] Atorvastatin Calcium (Lipitor -) 40 mg PO HS [facility] Docusate Sodium (Colace -) 100 mg PO DAILY [facility] Enoxaparin Sodium (Lovenox -) 40 mg SQ DAILY [facility] Fentanyl (Sublimaze Injection -) 50 mcg IVPUSH [id number] PRN PRN Reason: PAIN-PACU ORDER X 4 DOSES ONLY Cefazolin Sodium (Ancef 1 Gm Premixed Ivpb -) 50 mls @ 100 mls/hr IVPB Q8H-IV AYALA Stop: 10/17/17 02:29 Famotidine/Sodium Chloride (Pepcid 20 Mg Premixed Ivpb -) 20 mg in 50 mls @ 100 mls/hr IVPB BID AYALA Lactated Ringer's (Lactated Ringers Solution) 1,000 mls @ 125 mls/hr IV ASDIR AYALA Sodium Chloride (Normal Saline -) 1,000 mls @ 42 mls/hr IV ASDIR AYALA Insulin Aspart (Novolog Vial Sliding Scale -) 1 vial SQ ACHS AYALA PRN Reason: Protocol Isosorbide Mononitrate (Imdur -) 120 mg PO DAILY [facility] Morphine Sulfate (Morphine Injection -) 2 mg IVPUSH Q4H PRN PRN Reason: PAIN LEVEL 1-5 Ondansetron HCl (Zofran Injection) 4 mg IVPUSH Q6H PRN PRN Reason: NAUSEA AND/OR VOMITING Promethazine HCl (Phenergan Injection -) 12.5 mg IVPUSH Q6H PRN PRN Reason: NAUSEA-FOR RESCUE AFTER 15 MIN Senna (Senna -) 2 tab PO HS PRN PRN Reason: CONSTIPATION Vital Signs - 24 hr 10/15/17 10/15/17 10/15/17 14:24 18:58 22:14 Temperature 98.0 F 98.0 F 98.2 F Pulse Rate 69 Pulse Rate [ 75 76 Right Apical] Respiratory 19 19 18 Rate Blood Pressure 167/86 Blood Pressure 143/85 134/78 [Right Arm] O2 Sat by Pulse 98 98 97 Oximetry (%) 01/10/16/17 10/16/17 05:50 09:00 10:00 Temperature 98.1 F 98.8 F Pulse Rate 68 76 Pulse Rate [ Right Apical] Respiratory 20 20 20 Rate Blood Pressure 151/60 160/68 Blood Pressure [Right Arm] O2 Sat by Pulse 94 L Oximetry (%) Intake & Output 10/14/17 10/15/17 10/16/17 10/17/17 07:59 07:59 07:59 07:59 Intake Total 604 700 Output Total 1600 100 Balance -996 600 Weight 192 lb 182 lb 3.2 oz nad, calm jvd flat, neck supple erythema of eye rrr nl s1, s2 no mrg ctab, nl effort + bs soft nt nd trace edema, no c/c diminished dp/pt no carotid bruits no jaundice, diaphoresis aaox3 CBC, BMP 10/16/17 11:35 10/16/17 11:35 ekg 09/2017: nsr, leftward axis. lateral twi. similar to priors. [place]longstanding [place] [facility] [place] sr cxr: no acute pathology [place] [facility] [place] lvedp 14. EF 60%, no rwma. mild disease in lad and lcx. patent plad, pLcx, dLcx, om1, om2 stents. mild disease in prrca and mrca. patent mrca stent. 50-60% drca with prior stent, RPL1 90-95% ISR --> janes. echo 01/2017 [facility] [place]: nl lv/rv size/fn. diastolic dysfunction. 1+ ar, + mac, 1+ mr. no sig phtn. 4.0 cm sinus, 3.9 asc, --> smaller on cta. A/p 82 yo with h/o HTN, HLD, CAD s/p NQWMI and multiple ISR/PCI (most recent 04/2017) , infrarenal AAA s/p aorto bi-iliac endograft repair '10 (with endoleak), mild/ borderline aortic root enlargement with atheroma, niddm, essential tremor, mild memory loss/occ disorientation, neuropathy with poor balance, pulmonary nodules , gerd, depression on zoloft, prostate cancer( s/p TURP/XRT and chemo), who presents s/p fall complicated by rt hip fx with plan for surgical repair. mechanical fall s/p hip fracture - 2nd fall this year. states he has difficulty with balance and ? neuropathy. - ongoing mgm't per pmd/surgery. Pre-op clearance - patient ~ 6 mo since janes. Given necessity of surgery, reasonable to hold plavix and con't asa monotherapy alone satish-operatively. last dose of plavix saturday 10/14. Did not receive asa today, will order. Discuss[place] with [place] [facility] [place] and they are in agreement. Patient's mobile security architect Dr. Rosario to be notified. Discussed with inpatient pmd. - Patient with good functional capacity and is asx/stable from CV perspective with preserved EF. No need for further CV testing prior to surgery. Based on RCRI, age and functional capacity, patient with low-intermediate risk for satish- operative CV events. Patient counseled on risk. - s/p surgery/right IM gamma nail 10/16. Resume plavix when safe per surgery. CAD s/p NQWMI and multiple ISR/PCI (most recent 04/2017) on DAPT/HL - nl LVEF, no anginal sx's. - multiple + prior stents to at least plad, pLcx, dLcx, om1, om2, prrca, mrca, drca, RPL with ISR and recurrent stent placement to at least om2, RPL and possibly more. - On norvasc and imdur as anti-anginal. Con't statin - Satish-operative anti-platelet mgmt as mentioned above. htn - angioedema to ACEI - resume home regimen. monitor. 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 - followed by vascular as outpatient
--- NOTE | 2017-10-16 13:47 | SPEC ---
DATE OF OPERATION: 10/16/2017 PREOPERATIVE DIAGNOSIS: Right intertrochanteric hip fracture. POSTOPERATIVE DIAGNOSIS: Right intertrochanteric hip fracture. PROCEDURE: Right Gamma nailing. SURGICAL ATTENDING: Betsy Romano MD FIRE PREVENTION INSPECTOR: YUE Millard ANESTHESIA: General. CLOSURE: A short Gamma nail with appropriate interlocks, No. 1 Vicryl fascia, 2-0 for subcutaneous, kirsten to skin. ESTIMATED BLOOD LOSS: Less than 100 mL. COMPLICATIONS: None. CONDITION: To Recovery in stable condition. DESCRIPTION OF THE PROCEDURE: The patient was taken to the operating room on October 16, 2017. IV Kefzol was administered prophylactically prior to the case. Anesthesia was administered by the anesthesiologist. The patient was then fastened to the fracture table with all prominences well padded. Excellent reduction of the fracture was confirmed in AP and lateral plane by use of fluoroscopy. The right hip area was then prepped and draped in the usual sterile fashion by use of a shower curtain. A small 2-cm longitudinal incision over the tip of the greater trochanter was incised, hemostasis achieved using Bovie cautery. Sharp dissection was carried through the fascia. A guidewire was drilled from the tip of the greater trochanter into the intramedullary canal past the fracture. This was directed by fluoroscopy in both the AP and lateral plane. This was overreamed with a proximal reamer. A short Gamma nail was then malleted down into place. Using the outrigger and a small stab incision laterally, a guidewire was drilled from the lateral aspect of the femur, through the zacarias, through the neck into the femoral head. Proper placement was confirmed in the AP and lateral plane by using the image intensifier. The guidewire was measured for length, reamed with a triple reamer, and then screwed with the appropriate-sized lag screw. With the traction removed, the compression device was used to compress the fracture. A set screw was placed from above in the dynamic fashion. Again using the outrigger and through a small stab incision distally, a distal hole was drilled, depth gauged and screwed with the appropriate length locking screw in the static hole. The outrigger was removed. The x-rays in the AP and lateral plane revealed excellent position of the hardware with excellent reduction of the fracture. All incisions were irrigated out with copious amounts of irrigation. The fascia was closed in No. 1 Vicryl, 2-0 subcutaneous, and kirsten to the skin. Sterile pressure dressing was applied, patient awakened from anesthesia and transferred to Recovery in stable condition. No complications. Estimated blood loss less than 100 mL. BETSY ROMANO M.D. CLIVE/[id number]
--- NOTE | 2017-10-16 14:21 | PN ---
Teaching Attending Note Name of Resident: Neville Peralta ATTENDING PHYSICIAN STATEMENT Time of evaluation: 10:15 AM I saw and evaluated the patient. I reviewed the resident's note and discussed the case with the resident. I agree with the resident's findings and plan as documented. SUBJECTIVE: Patient seen and examined. right hip. no chest pain, palpitations, dyspnea, dizziness or arm or jaw pain. Some occasional non productive cough, reports had bronchitis in august, residual cough from the same. No new complaints. OBJECTIVE: Vital Signs Period Temp Pulse Resp BP Sys/Hernandez Pulse Ox Last 24 Hr 98.0 F-98.8 F 68-76 15-20 134-172/60-86 94-98 Intake & Output 10/13/17 10/14/17 10/15/17 10/16/17 23:59 23:59 23:59 23:59 Intake Total 1304 Output Total 1100 600 Balance -1100 704 Weight 182 lb 3.2 oz general: lying in bed in no acute distress Chest: no rales or wheezing, limited exam posteriorly Extremities: RLE shortened and externally rotated, positive pulses abdomen: soft, NT, positive bowel sounds Home Medication List Medication Instructions Recorded Confirmed Type Amlodipine Besylate [Amlodipine 10 mg PO DAILY 10/15/17 10/15/17 History Besylate] Atorvastatin Calcium 40 mg PO DAILY 10/15/17 10/15/17 History Clopidogrel Bisulfate [Plavix] 75 mg PO DAILY 10/15/17 10/15/17 History Isosorbide Mononitrate [Isosorbide 120 mg PO DAILY 10/15/17 10/15/17 History Mononitrate ER] Metformin HCl 500 mg PO BID 10/15/17 10/15/17 History Primidone [Mysoline -] 50 mg PO BID 10/15/17 10/15/17 History Sertraline HCl [Sertraline HCl] 50 mg PO DAILY 10/15/17 10/15/17 History Active Medications Generic Name Dose Route Start Last Admin Trade Name Freq PRN Reason Stop Dose Admin Amlodipine Besylate 10 mg 10/17/17 10:00 Norvasc - PO DAILY AYALA Aspirin 81 mg 10/17/17 10:00 Ecotrin - PO DAILY AYALA Atorvastatin Calcium 40 mg 10/16/17 22:00 Lipitor - PO HS AYALA Docusate Sodium 100 mg 10/17/17 10:00 Colace - PO DAILY AYALA Enoxaparin Sodium 40 mg 10/17/17 10:00 Lovenox - SQ DAILY [facility] Fentanyl 50 mcg 10/16/17 13:34 Sublimaze Injection - IVPUSH [id number] PRN PAIN-PACU ORDER X 4 DOSES ONLY Cefazolin Sodium 1 gm in 10 mls @ 120 mls/hr 10/16/17 20:00 Ancef - IVPUSH 10/17/17 04:04 Q8H [facility] Famotidine/Sodium Chloride 20 mg in 50 mls @ 100 mls/hr 10/16/17 22:00 Pepcid 20 Mg Premixed Ivpb - IVPB BID [facility] Lactated Ringer's 1,000 mls @ 125 mls/hr 10/16/17 13:34 Lactated Ringers Solution IV ASDIR [facility] Sodium Chloride 1,000 mls @ 42 mls/hr 10/16/17 13:34 Normal Saline - IV ASDIR [facility] Insulin Aspart 1 vial 10/16/17 16:30 Novolog Vial Sliding Scale - SQ ACHS [facility] Protocol Isosorbide Mononitrate 120 mg 10/16/17 13:45 Imdur - PO DAILY [facility] Morphine Sulfate 2 mg 10/16/17 13:34 Morphine Injection - IVPUSH Q4H PRN PAIN LEVEL 1-5 Ondansetron HCl 4 mg 10/16/17 13:34 Zofran Injection IVPUSH Q6H PRN NAUSEA AND/OR VOMITING Promethazine HCl 12.5 mg 10/16/17 13:34 Phenergan Injection - IVPUSH Q6H PRN NAUSEA-FOR RESCUE AFTER 15 MIN Senna 2 tab 10/16/17 22:00 Senna - PO HS PRN CONSTIPATION Laboratory Results - last 24 hr 10/15/17 10/15/17 10/16/17 16:45 23:28 06:15 WBC RBC Hgb Hct MCV MCH MCHC RDW Plt Count MPV PT with INR INR Sodium Potassium Chloride Carbon Dioxide Anion Gap BUN Creatinine Creat Clearance w eGFR POC Glucometer 183.55650 148 164 Random Glucose Calcium Total Bilirubin AST ALT Alkaline Phosphatase Total Protein Albumin 10/16/17 10/16/17 10/16/17 11:35 11:35 11:35 WBC 9.2 RBC 3.61 L Hgb 10.9 L Hct 31.6 L MCV 87.6 MCH 30.1 MCHC 34.4 RDW 13.5 Plt Count 129 L MPV 7.1 L PT with INR 12.90 H INR 1.14 Sodium 139 Potassium 3.8 Chloride 106 Carbon Dioxide 26 Anion Gap 7 L BUN 12 D Creatinine 0.7 D Creat Clearance w eGFR > 60 POC Glucometer Random Glucose 134 H D Calcium 7.5 L Total Bilirubin 1.1 H D AST 24 D ALT 18 Alkaline Phosphatase 76 Total Protein 5.9 L Albumin 3.4 [place] [facility] [place] lvedp 14. EF 60%, no rwma. mild disease in lad and lcx. patent plad, pLcx, dLcx, om1, om2 stents. mild disease in prrca and mrca. patent mrca stent. 50-60% drca with prior stent, RPL1 90-95% ISR --> janes. ASSESSMENT AND PLAN: 82yo M with PMH HTN, dyslipidemia and CAD s/p multiple pCI (?13) (last 04/2017), AAA s/p endovascular graft repair with mechanical fall and R intertrochanteric fracture -Right intertrochanteric fracture s/p gamma nail 10/16 -CAD s/p multiple pCI -HTN -AAA s/p endovascular graft repair PLan: s/p gamma nail today. Monitor post operatively. Cardiology input appreciated, discussed with Dr. Sims and Dr. Romano. Plan to continue ASA in satish-operative period and resume plavix as able. Resume amlodipine and nitrates. Reconcile home meds. PT eval. Dispo planning likely to [facility] in 24-48 if doing well and no new concerns. Plan discussed with patient and daughter at bedside in detail, all questions answered.
[2017-10-16] MEDS: ISOSORBIDE MONONITRATE 60 MG TAB.SR.24H (FP) PO SCH (17:26)
[2017-10-16] MEDS: CEFAZOLIN 1 GM PUSH 1 GM/10 ML DISP.SYRIN IVPUSH SCH (19:45)
[2017-10-16] MEDS ORDERED: CEFAZOLIN 1 GM PUSH 1 GM/10 ML DISP.SYRIN IVPUSH SCH (20:00)
[2017-10-16] MEDS ORDERED: INSULIN (NOVOLOG) ASPART 100 UNITS/ML 10ML VIAL ONE (21:18)
[2017-10-16] MEDS: ATORVASTATIN CA 40 MG TABLET (FP) PO SCH (21:19)
[2017-10-16] MEDS ORDERED: SENNOSIDES 8.6MG TABLET (FP) PO PRN ×2 (22:00)
[2017-10-17] MEDS: CEFAZOLIN 1 GM PUSH 1 GM/10 ML DISP.SYRIN IVPUSH SCH (03:25)
[2017-10-17] MEDS: INSULIN SLIDING SCALE (NOVOLOG) 1 VIAL SQ SCH ×4 (06:25→21:38)
--- NOTE | 2017-10-17 06:27 | PN ---
Physical Exam: SUBJECTIVE: Patient seen and examined by me this AM - Pt doing well POD1. Pt with pain in R hip. +flatus, -BM. No fevers, SOB, CP, N /V, abdominal pain, dysuria, numbness or weakness in extremities. Still with mild cough. - Pt mildly disoriented during team rounds; stated he was going to a " restaurant around the corner"; Still A&Ox3 OBJECTIVE: Vital Signs Intake & Output 10/14/17 10/15/17 10/16/17 10/17/17 23:59 23:59 23:59 23:59 Intake Total 2148 504 Output Total 1100 900 Balance -1100 1248 504 Weight 82.645 kg Period Temp Pulse Resp BP Sys/Hernandez Pulse Ox Last 24 Hr 98.3 F-99.0 F 68-85 14-20 116-172/52-84 94-99 GENERAL: Elderly man, lying bed, BL hand shaking. The patient is awake, alert, and fully oriented, in no acute distress. HEAD: Normal with no signs of trauma. EYES: PERRL, extraocular movements intact, sclera anicteric, conjunctiva clear. No ptosis. ENT: Ears normal, nares patent, oropharynx clear without exudates, moist mucous membranes. NECK: Trachea midline, full range of motion, supple. LUNGS: Bibasilar rhonchi. Trace upper airway congestion. no wheezes, no crackles , no accessory muscle use. HEART: Regular rate and rhythm, S1, S2 without murmur, rub or gallop. ABDOMEN: Soft, nontender, nondistended, normoactive bowel sounds, no guarding, no rebound, no hepatosplenomegaly, no masses. EXTREMITIES: Bruise on R underarm. 2+ pulses, warm, well-perfused, no edema. Good pulses, preserved sensation distally in both legs BL. NEUROLOGICAL: Cranial nerves II through XII grossly intact. Normal speech, gait not observed. PSYCH: Normal mood, normal affect. SKIN: Warm, dry, normal turgor, no rashes or lesions noted Laboratory Results - last 24 hr CBC, BMP 10/17/17 06:35 10/16/17 11:35 10/16/17 11:35 10/16/17 10/16/17 10/16/17 06:15 11:35 11:35 WBC 9.2 RBC 3.61 L Hgb 10.9 L Hct 31.6 L MCV 87.6 MCH 30.1 MCHC 34.4 RDW 13.5 Plt Count 129 L MPV 7.1 L PT with INR 12.90 H INR 1.14 Sodium Potassium Chloride Carbon Dioxide Anion Gap BUN Creatinine Creat Clearance w eGFR POC Glucometer 164 Random Glucose Calcium Total Bilirubin AST ALT Alkaline Phosphatase Total Protein Albumin 10/16/17 10/16/17 10/16/17 11:35 14:28 17:07 WBC RBC Hgb Hct MCV MCH MCHC RDW Plt Count MPV PT with INR INR Sodium 139 Potassium 3.8 Chloride 106 Carbon Dioxide 26 Anion Gap 7 L BUN 12 D Creatinine 0.7 D Creat Clearance w eGFR > 60 POC Glucometer 162 202 Random Glucose 134 H D Calcium 7.5 L Total Bilirubin 1.1 H D AST 24 D ALT 18 Alkaline Phosphatase 76 Total Protein 5.9 L Albumin 3.4 10/16/17 21:16 WBC RBC Hgb Hct MCV MCH MCHC RDW Plt Count MPV PT with INR INR Sodium Potassium Chloride Carbon Dioxide Anion Gap BUN Creatinine Creat Clearance w eGFR POC Glucometer 214 Random Glucose Calcium Total Bilirubin AST ALT Alkaline Phosphatase Total Protein Albumin Active Medications Generic Name Dose Route Start Last Admin Trade Name Freq PRN Reason Stop Dose Admin Aspirin 81 mg 10/17/17 10:00 Ecotrin - PO DAILY [facility] Atorvastatin Calcium 40 mg 10/16/17 22:00 10/16/17 21:19 Lipitor - PO 40 mg HS AYALA Administration Docusate Sodium 100 mg 10/17/17 10:00 Colace - PO DAILY [facility] Enoxaparin Sodium 40 mg 10/17/17 10:00 Lovenox - SQ DAILY [facility] Fentanyl 50 mcg 10/16/17 13:34 Sublimaze Injection - IVPUSH [id number] PRN PAIN-PACU ORDER X 4 DOSES ONLY Famotidine/Sodium Chloride 20 mg in 50 mls @ 100 mls/hr 10/16/17 22:00 21:20 Pepcid 20 Mg Premixed Ivpb - IVPB 100 mls/hr BID AYALA Administration Sodium Chloride 1,000 mls @ 42 mls/hr 10/16/17 13:34 10/16/17 17:16 Normal Saline - IV Not Given ASDIR [facility] Insulin Aspart 1 vial 10/16/17 16:30 10/16/17 21:20 Novolog Vial Sliding Scale - SQ 4 units ACHS AYALA Administration Protocol Isosorbide Mononitrate 120 mg 10/16/17 13:45 10/16/17 17:26 Imdur - PO 120 mg DAILY AYALA Administration Morphine Sulfate 2 mg 10/16/17 13:34 Morphine Injection - IVPUSH Q4H PRN PAIN LEVEL 1-5 Ondansetron HCl 4 mg 10/16/17 13:34 Zofran Injection IVPUSH Q6H PRN NAUSEA AND/OR VOMITING Promethazine HCl 12.5 mg 10/16/17 13:34 Phenergan Injection - IVPUSH Q6H PRN NAUSEA-FOR RESCUE AFTER 15 MIN Senna 2 tab 10/16/17 22:00 Senna - PO HS PRN CONSTIPATION No micro CXR 10/15 - No acute pathology Hip/pelvis XR 10/15 - An AP view the pelvis and images of the right hip reveal an acute right femoral intertrochanteric fracture with varus deformity. There are pelvic clips and penile prosthesis. There is an aorto iliac vascular stent. The other bones are intact. EKG 10/15 - NSR 65, LAD, TWIs in lateral leads, qtc 440 ASSESSMENT/PLAN: 82 y/o m with PMH of HTN, HLD, DM, CAD (x13 stents) prostate cancer(s/p RT and chemo), who was brought to ED after fall and found to have intertrochanteric fracture. #R Intertrochanteric fracture - Imaging confirmed - POD1; doing well - d/c nevarez - Encourage OOB, ISS - pain control with oxycodone - Hgb 8.6 -> 8.5 - PT order - Trend fever, WBC - Phenergan, zofran for post-op n/v #HTN -monitor - start Norvasc 5mg #HLD - c/w home lipitor -Lipid panel normal #CAD - EKG with lateral lead TWs; no change since prior ekg; applications trainer, Dr Rosario [phone]. -cardiac monitoring -trops neg x2 -Cardiology consult, recs appreciated - Imdur 120mg daily -cont asa per cards, hold plavix for now; resume per surgery team recs #DM -hold metformin -BGM q6h -ISS #Infrarenal AAA - Followed by vascular as outpt - c/w home meds #Constipation - Senna, colace - Doculax - Miralax PRN PPX Lovenox 40mg qD Zantac FEN NS 42cc/hr Daily BMP Diabetic diet med-surg. Dispo to [facility] [place] d/w attending, Dr. Amanda Peralta, PGY1 Visit type - Emergency Visit Emergency Visit: Yes ED Registration Date: 10/15/17 Care time: The patient presented to the Emergency Department on the above date and was hospitalized for further evaluation of their emergent condition. - New Patient This patient is new to me today: No - Critical Care Critical Care patient: No
[2017-10-17 07:58] LABS: HEMATOCRIT 24.6 % (35.4-49); HEMOGLOBIN 8.6 GM/dL (11.7-16.9); MCH 30.6 pg (25.7-33.7); MCHC 34.9 g/dl (32.0-35.9); MEAN CELL VOLUME 87.9 fl (80-96); MEAN PLT VOLUME 7.5 fl (7.5-11.1); PLATELET COUNT 125 K/MM3 (134-434); RBC 2.79 M/mm3 (4.00-5.60); WHITE BLOOD COUNT 8.5 K/mm3 (4.0-10.0)
[2017-10-17] MEDS ORDERED: PROPOFOL 20 ML ONE (08:56)
[2017-10-17] MEDS ORDERED: MIDAZOLAM HCL 2 MG/2 ML SINGLE DOSE VIAL ONE (08:57)
[2017-10-17] MEDS: DOCUSATE SODIUM 100 MG CAPSULE (FP) PO SCH (09:13)
[2017-10-17] MEDS: ASPIRIN COATED 81 MG TABLET.EC PO SCH (09:13)
[2017-10-17] MEDS: ISOSORBIDE MONONITRATE 60 MG TAB.SR.24H (FP) PO SCH (09:13)
[2017-10-17] MEDS: FAMOTIDINE 20 MG/50 ML IVPB 20 MG/50 ML MG IVPB SCH ×2 (09:14→21:38)
[2017-10-17] MEDS: ENOXAPARIN NA (PORCINE) 40 MG/0.4 ML DISP.SYRIN SQ SCH (09:14)
[2017-10-17] MEDS ORDERED: ceFAZolin SODIUM 1 GM VIAL ONE (09:19)
[2017-10-17] MEDS ORDERED: DEXAMETHASONE SOD PHOSPHATE 4 MG/1 ML VIAL ONE (09:20)
[2017-10-17 09:39] LABS: CHLORIDE 107 mmol/L (98-107); POTASSIUM 3.6 mmol/L (3.5-5.1); SODIUM 141 mmol/L (136-145)
[2017-10-17] MEDS ORDERED: amLODIPine BESYLATE 10 MG TABLET (FP) PO SCH (10:00)
[2017-10-17] MEDS ORDERED: DOCUSATE SODIUM 100 MG CAPSULE (FP) PO SCH (10:00)
[2017-10-17] MEDS ORDERED: ENOXAPARIN NA (PORCINE) 40 MG/0.4 ML DISP.SYRIN SQ SCH (10:00)
[2017-10-17 10:22] LABS: ANION GAP 11 (8-16); BLOOD UREA NITROGEN 21 mg/dL (7-18); CALCIUM 7.6 mg/dL (8.5-10.1); CO2 23 mmol/L (21-32); CREATININE 0.9 mg/dL (0.7-1.3); GLUCOSE,RANDOM 124 mg/dL (74-106)
[2017-10-17] MEDS ORDERED: KETOROLAC TROMETHAMINE 30 MG/1 ML VIAL ONE (10:42)
--- NOTE | 2017-10-17 11:31 | PN ---
Progress Note (short form) - Note Progress Note: CC: pre-op clearance S: no cp, palps, dizziness, sob Current Medications Generic Name Dose Route Start Last Admin Trade Name Freq PRN Reason Stop Dose Admin Aspirin 81 mg 10/17/17 10:00 10/17/17 09:13 Ecotrin - PO 81 mg DAILY AYALA Administration Atorvastatin Calcium 40 mg 10/16/17 22:00 10/16/17 21:19 Lipitor - PO 40 mg HS AYALA Administration Docusate Sodium 100 mg 10/17/17 10:00 10/17/17 09:13 Colace - PO 100 mg DAILY AYALA Administration Enoxaparin Sodium 40 mg 10/17/17 10:00 10/17/17 09:14 Lovenox - SQ 40 mg DAILY AYALA Administration Fentanyl 50 mcg 10/16/17 13:34 Sublimaze Injection - IVPUSH [id number] PRN PAIN-PACU ORDER X 4 DOSES ONLY Famotidine/Sodium Chloride 20 mg in 50 mls @ 100 mls/hr 10/16/17 22:00 09:14 Pepcid 20 Mg Premixed Ivpb - IVPB 100 mls/hr BID AYALA Administration Sodium Chloride 1,000 mls @ 42 mls/hr 10/16/17 13:34 10/16/17 17:16 Normal Saline - IV Not Given ASDIR AYALA Insulin Aspart 1 vial 10/16/17 16:30 10/17/17 11:11 Novolog Vial Sliding Scale - SQ 6 units ACHS AYALA Administration Protocol Isosorbide Mononitrate 120 mg 10/16/17 13:45 10/17/17 09:13 Imdur - PO 120 mg DAILY AYALA Administration Morphine Sulfate 2 mg 10/16/17 13:34 Morphine Injection - IVPUSH Q4H PRN PAIN LEVEL 1-5 Ondansetron HCl 4 mg 10/16/17 13:34 Zofran Injection IVPUSH Q6H PRN NAUSEA AND/OR VOMITING Promethazine HCl 12.5 mg 10/16/17 13:34 Phenergan Injection - IVPUSH Q6H PRN NAUSEA-FOR RESCUE AFTER 15 MIN Senna 2 tab 10/16/17 22:00 Senna - PO HS PRN CONSTIPATION Vital Signs Period Temp Pulse Resp BP Sys/Hernandez Pulse Ox Last 24 Hr 98.3 F-99.2 F 68-85 14-20 116-172/52-84 96-99 nad, calm jvd flat, neck supple rrr nl s1, s2 no mrg ctab, nl effort + bs soft nt nd trace edema, no c/c no jaundice, diaphoresis aaox3 CBC, BMP 10/17/17 06:35 10/17/17 06:35 ekg 09/2017: nsr, leftward axis. lateral twi. similar to priors. (longstanding lateral twi [place] [facility] [facility] [place] tele: sr cxr: no acute pathology [place] [facility] [place] lvedp 14. EF 60%, no rwma. mild disease in lad and lcx. patent plad, pLcx, dLcx, om1, om2 stents. mild disease in prrca and mrca. patent mrca stent. 50-60% drca with prior stent, RPL1 90-95% ISR --> janes. [place] [facility] [place]/rv size/fn. diastolic dysfunction. 1+ ar, + mac, 1+ mr. no sig phtn. 4.0 cm sinus, 3.9 asc, --> smaller on cta. A/p 82 yo with h/o HTN, HLD, CAD s/p NQWMI and multiple ISR/PCI (most recent 04/2017) , infrarenal AAA s/p aorto bi-iliac endograft repair '10 (with endoleak), mild/ borderline aortic root enlargement with atheroma, niddm, essential tremor, mild memory loss/occ disorientation, neuropathy with poor balance, pulmonary nodules , gerd, depression on zoloft, prostate cancer( s/p TURP/XRT and chemo), who presents s/p fall complicated by rt hip fx with plan for surgical repair. mechanical fall s/p hip fracture - 2nd fall this year. states he has difficulty with balance and ? neuropathy. - ongoing mgm't per pmd/surgery. CAD s/p NQWMI and multiple ISR/PCI (most recent 04/2017) on DAPT/HL - nl LVEF, no anginal sx's. - multiple + prior stents to at least plad, pLcx, dLcx, om1, om2, prrca, mrca, drca, RPL with ISR and recurrent stent placement to at least om2, RPL and possibly more. - On norvasc and imdur as anti-anginal. Con't statin - cont asa. Resume plavix when safe per surgery. htn - angioedema to ACEI - cont home regimen. monitor. 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 - followed by vascular as outpatient
--- NOTE | 2017-10-17 11:56 | PN ---
Progress Note (short form) - Note Progress Note: Ortho Pt seen and examined s/p right IM gamma nail pod #1 Selected Entries 10/17/17 06:25 Temperature 99.2 F Pulse Rate 84 Respiratory 18 Rate Blood Pressure 142/68 Laboratory Tests 10/17/17 06:35 WBC 8.5 Hgb 8.6 L D Hct 24.6 L D Plt Count 125 L dressing c/d/i, calf soft, nt nvi a/p PT wbat dvt ppx pain control d/c planning
[2017-10-17] MEDS ORDERED: BISACODYL 10 MG SUPP.RECT RC ONE (13:21)
[2017-10-17] MEDS ORDERED: oxyCODONE HCL 5 MG TABLET PO PRN (13:23)
[2017-10-17] MEDS: ACETAMINOPHEN 325 MG TABLET (FP) PO PRN (13:37)
[2017-10-17 13:58] LABS: HEMATOCRIT 24.7 % (35.4-49); HEMOGLOBIN 8.5 GM/dL (11.7-16.9); MCH 30.6 pg (25.7-33.7); MCHC 34.4 g/dl (32.0-35.9); MEAN CELL VOLUME 88.7 fl (80-96); PLATELET COUNT 134 K/MM3 (134-434); RBC 2.78 M/mm3 (4.00-5.60); RDW 13.1 % (11.9-15.9); WHITE BLOOD COUNT 9.5 K/mm3 (4.0-10.0)
--- NOTE | 2017-10-17 14:32 | PN ---
Progress Note (short form) - Note Progress Note: POD #1 - s/p ORIF right hip under general anesthesia. VSS. Pt. doing well, resting comfortably in bed. No complaints. No apparent anesthetic complications noted. Continue current care.
--- NOTE | 2017-10-17 17:33 | PN ---
Teaching Attending Note Name of Resident: Neville Peralta ATTENDING PHYSICIAN STATEMENT Time of evaluation: 10:45 AM I saw and evaluated the patient. I reviewed the resident's note and discussed the case with the resident. I agree with the resident's findings and plan as documented. SUBJECTIVE: Patient seen and examined. right hip pain, initially slightly confused but redirectable and OX3. NO other complaints. OBJECTIVE: Vital Signs Period Temp Pulse Resp BP Sys/Hernandez Pulse Ox Last 24 Hr 98.6 F-99.7 F 76-85 18-20 116-142/49-68 92-98 Intake & Output 10/14/17 10/15/17 10/16/17 10/17/17 23:59 23:59 23:59 23:59 Intake Total 2148 1454 Output Total 1100 900 600 Balance -1100 1248 854 Weight 182 lb 3.2 oz general: sitting in chair in no acute distress Chest: no rales or wheezing abdomen: soft, NT, ND, positive bowel sounds Extremities: RLE wound dressing clean, positive DP pulses, no edema Home Medication List Medication Instructions Recorded Confirmed Type Atorvastatin Calcium 40 mg PO DAILY 10/15/17 10/15/17 History Clopidogrel Bisulfate [Plavix] 75 mg PO DAILY 10/15/17 10/15/17 History Isosorbide Mononitrate [Isosorbide 120 mg PO DAILY 10/15/17 10/15/17 History Mononitrate ER] Primidone [Mysoline -] 50 mg PO BID 10/15/17 10/15/17 History Sertraline HCl [Sertraline HCl] 50 mg PO DAILY 10/15/17 10/15/17 History Active Medications Generic Name Dose Route Start Last Admin Trade Name Freq PRN Reason Stop Dose Admin Acetaminophen 650 mg 10/17/17 12:02 10/17/17 13:37 Tylenol - PO 650 mg Q6H PRN Administration PAIN LEVEL 6-10 Amlodipine Besylate 5 mg 10/18/17 10:00 Norvasc - PO DAILY AYALA Aspirin 81 mg 10/17/17 10:10/17/17 09:13 Ecotrin - PO 81 mg DAILY AYALA Administration Atorvastatin Calcium 40 mg 10/16/17 22:00 10/16/17 21:19 Lipitor - PO 40 mg HS AYALA Administration Docusate Sodium 100 mg 10/17/17 10:00 10/17/17 09:13 Colace - PO 100 mg DAILY AYALA Administration Enoxaparin Sodium 40 mg 10/17/17 10:00 10/17/17 09:14 Lovenox - SQ 40 mg DAILY AYALA Administration Famotidine/Sodium Chloride 20 mg in 50 mls @ 100 mls/hr 10/16/17 22:00 09:14 Pepcid 20 Mg Premixed Ivpb - IVPB 100 mls/hr BID AYALA Administration Sodium Chloride 1,000 mls @ 42 mls/hr 10/16/17 13:34 10/16/17 17:16 Normal Saline - IV Not Given ASDIR AYALA Insulin Aspart 1 vial 10/16/17 16:30 10/17/17 16:50 Novolog Vial Sliding Scale - SQ 6 units ACHS AYALA Administration Protocol Isosorbide Mononitrate 120 mg 10/16/17 13:45 10/17/17 09:13 Imdur - PO 120 mg DAILY AYALA Administration Ondansetron HCl 4 mg 10/16/17 13:34 Zofran Injection IVPUSH Q6H PRN NAUSEA AND/OR VOMITING Oxycodone HCl 5 mg 10/17/17 13:23 10/17/17 15:52 Roxicodone - PO 5 mg Q4H PRN Administration PAIN LEVEL 4 - 6 Polyethylene Glycol 17 gm 10/17/17 15:50 Miralax (For Daily Use) - PO DAILY PRN CONSTIPATION Promethazine HCl 12.5 mg 10/16/17 13:34 Phenergan Injection - IVPUSH Q6H PRN NAUSEA-FOR RESCUE AFTER 15 MIN Senna 2 tab 10/16/17 22:00 Senna - PO HS PRN CONSTIPATION Laboratory Results - last 24 hr 10/16/17 10/16/17 10/17/17 17:07 21:16 05:48 WBC RBC Hgb Hct MCV MCH MCHC RDW Plt Count MPV Sodium Potassium Chloride Carbon Dioxide Anion Gap BUN Creatinine POC Glucometer 202 214 170 Random Glucose Calcium 10/17/17 10/17/17 10/17/17 06:35 06:35 11:10 WBC 8.5 RBC 2.79 L D Hgb 8.6 L D Hct 24.6 L D MCV 87.9 MCH 30.6 MCHC 34.9 RDW 13.0 Plt Count 125 L MPV 7.5 Sodium 141 Potassium 3.6 Chloride 107 Carbon Dioxide 23 Anion Gap 11 BUN 21 H D Creatinine 0.9 D POC Glucometer 274 Random Glucose 124 H Calcium 7.6 L 10/17/17 10/17/17 13:50 16:47 WBC 9.5 RBC 2.78 L Hgb 8.5 L Hct 24.7 L MCV 88.7 MCH 30.6 MCHC 34.4 RDW 13.1 Plt Count 134 MPV 7.0 L Sodium Potassium Chloride Carbon Dioxide Anion Gap BUN Creatinine POC Glucometer 255 Random Glucose Calcium [place] [facility] [place] (for [place]ina): lvedp 14. EF 60%, no rwma. mild disease in lad and lcx. patent plad, pLcx, dLcx, om1, om2 stents. mild disease in prrca and mrca. patent mrca stent. 50-60% drca with prior stent, RPL1 90-95% ISR --> janes. ASSESSMENT AND PLAN: 82yo M with PMH HTN, dyslipidemia and CAD s/p multiple pCI (?13) (last 04/2017), AAA s/p endovascular graft repair with mechanical fall and R intertrochanteric fracture -Right intertrochanteric fracture s/p gamma nail 10/16 -Anemia, suspect acute blood loss from trauma/surgery. -CAD s/p multiple pCI -HTN -AAA s/p endovascular graft repair PLan: doing well postoperatively, mildly confused but redirectable and OX3. Per family, similar history on prior admits. D/c nevarez, encourage OOB, pain control, taper narcotics as tolerated. Frequent reorientation to environment, PT eval. Cardiology input appreciated, continue ASA, discussed with orthopedic when able to resume plavix. ANemic this AM, but repeat stable. Monitor, transfuse for Hb <8. Continue nitrates. Start low dose amlodipine and monitor. PT eval. Dispo planning likely to [facility] in 24-48 if doing well and no new concerns. Plan discussed with patient and all questions answered.
[2017-10-17] MEDS: POLYETHYLENE GLYCOL 3350 119 GM BTL PO PRN (18:48)
[2017-10-17] MEDS: ATORVASTATIN CA 40 MG TABLET (FP) PO SCH (21:37)
[2017-10-17] MEDS: SODIUM CHLORIDE 1,000 ML IV SCH (23:49)
--- NOTE | 2017-10-18 05:55 | PN ---
Physical Exam: SUBJECTIVE: Patient seen and examined - A&Ox2. Pt slightly disoriented in AM, stating he was "at the place they do physical therapy". Denies any f/c, WARD/dizziness, CP, SOB, ab pain, dysuria, peripheral numbness/weakness, LE edema. Still with constipation overnight. -POD2. Pt pulled out R hip dressing overnight, replaced by nursing staff. Pt alert at bedtime w/ no pain complaints, all fall risk precautions appropriately maintained overnight. - nevarez d/c'ed yesterday. Voiding freely - Pt complaining of "chest pain a week ago" during rounds. Still mildly confused. F/u EKG no change. Trops pending OBJECTIVE: Vital Signs Intake & Output 10/15/17 10/16/17 10/17/17 10/18/17 23:59 23:59 23:59 23:59 Intake Total 2148 1954 533 Output Total 1100 900 600 150 Balance -1100 1248 1354 383 Weight 82.645 kg Period Temp Pulse Resp BP Sys/Hernandez Pulse Ox Last 24 Hr 97.9 F-99.7 F 77-104 18-20 118-142/49-78 92 GENERAL: A&Ox2. Elderly man, lying bed. The patient is awake, alert, and fully oriented, in no acute distress. HEAD: Normal with no signs of trauma. EYES: PERRL, extraocular movements intact, sclera anicteric, conjunctiva clear. No ptosis. ENT: Ears normal, nares patent, oropharynx clear without exudates, moist mucous membranes. NECK: Trachea midline, full range of motion, supple. LUNGS: Trace rhonchi at bases. no wheezes, no crackles, no accessory muscle use. HEART: Regular rate and rhythm, S1, S2 without murmur, rub or gallop. ABDOMEN: Soft, nontender, nondistended, normoactive bowel sounds, no guarding, no rebound, no hepatosplenomegaly, no masses. EXTREMITIES: 2+ pulses, warm, well-perfused, no edema. Good pulses, good sensation distally in both legs BL, no edema. Dressing on R posterior hip c/d/i NEUROLOGICAL: Cranial nerves II through XII grossly intact. Normal speech, gait not observed. PSYCH: Normal mood, normal affect. SKIN: Warm, dry, normal turgor, no rashes or lesions noted Laboratory Results - last 24 hr CBC, BMP 10/18/17 07:20 10/18/17 07:20 10/17/17 13:50 10/17/17 06:35 10/17/17 10/17/17 10/17/17 05:48 06:35 06:35 WBC 8.5 RBC 2.79 L D Hgb 8.6 L D Hct 24.6 L D MCV 87.9 MCH 30.6 MCHC 34.9 RDW 13.0 Plt Count 125 L MPV 7.5 Sodium 141 Potassium 3.6 Chloride 107 Carbon Dioxide 23 Anion Gap 11 BUN 21 H D Creatinine 0.9 D POC Glucometer 170 Random Glucose 124 H Calcium 7.6 L 10/17/17 10/17/17 10/17/17 11:10 13:50 16:47 WBC 9.5 RBC 2.78 L Hgb 8.5 L Hct 24.7 L MCV 88.7 MCH 30.6 MCHC 34.4 RDW 13.1 Plt Count 134 MPV 7.0 L Sodium Potassium Chloride Carbon Dioxide Anion Gap BUN Creatinine POC Glucometer 274 255 Random Glucose Calcium 10/17/17 21:26 WBC RBC Hgb Hct MCV MCH MCHC RDW Plt Count MPV Sodium Potassium Chloride Carbon Dioxide Anion Gap BUN Creatinine POC Glucometer 175 Random Glucose Calcium Active Medications Generic Name Dose Route Start Last Admin Trade Name Freq PRN Reason Stop Dose Admin Acetaminophen 650 mg 10/17/17 12:02 10/17/17 13:37 Tylenol - PO 650 mg Q6H PRN Administration PAIN LEVEL 6-10 Amlodipine Besylate 5 mg 10/18/17 10:00 Norvasc - PO DAILY AYALA Aspirin 81 mg 10/17/17 10:00 10/17/17 09:13 Ecotrin - PO 81 mg DAILY AYALA Administration Atorvastatin Calcium 40 mg 10/16/17 22:00 10/17/17 21:37 Lipitor - PO 40 mg HS AYALA Administration Docusate Sodium 100 mg 10/17/17 10:00 10/17/17 09:13 Colace - PO 100 mg DAILY AYALA Administration Enoxaparin Sodium 40 mg 10/17/17 10:00 10/17/17 09:14 Lovenox - SQ 40 mg DAILY AYALA Administration Famotidine/Sodium Chloride 20 mg in 50 mls @ 100 mls/hr 10/16/17 22:00 21:38 Pepcid 20 Mg Premixed Ivpb - IVPB 100 mls/hr BID AYALA Administration Sodium Chloride 1,000 mls @ 42 mls/hr 10/16/17 13:34 10/17/17 23:49 Normal Saline - IV 42 mls/hr ASDIR AYALA Administration Insulin Aspart 1 vial 10/16/17 16:30 10/17/17 21:38 Novolog Vial Sliding Scale - SQ 2 units ACHS AYALA Administration Protocol Isosorbide Mononitrate 120 mg 10/16/17 13:45 10/17/17 09:13 Imdur - PO 120 mg DAILY AYALA Administration Ondansetron HCl 4 mg 10/16/17 13:34 Zofran Injection IVPUSH Q6H PRN NAUSEA AND/OR VOMITING Oxycodone HCl 5 mg 10/17/17 13:23 10/17/17 15:52 Roxicodone - PO 5 mg Q4H PRN Administration PAIN LEVEL 4 - 6 Polyethylene Glycol 17 gm 10/17/17 15:50 10/17/17 18:48 Miralax (For Daily Use) - PO 17 grams DAILY PRN Administration CONSTIPATION Promethazine HCl 12.5 mg 10/16/17 13:34 Phenergan Injection - IVPUSH Q6H PRN NAUSEA-FOR RESCUE AFTER 15 MIN Senna 2 tab 10/16/17 22:00 Senna - PO HS PRN CONSTIPATION No micro CXR 10/15 - No acute pathology Hip/pelvis XR 10/15 - An AP view the pelvis and images of the right hip reveal an acute right femoral intertrochanteric fracture with varus deformity. There are pelvic clips and penile prosthesis. There is an aorto iliac vascular stent. The other bones are intact. EKG 10/15 - NSR 65, LAD, TWIs in lateral leads, qtc 440 ASSESSMENT/PLAN: 82 y/o m with PMH of HTN, HLD, DM, CAD (x13 stents) prostate cancer(s/p RT and chemo), who was brought to ED after fall and found to have intertrochanteric fracture. #R Intertrochanteric fracture - Imaging confirmed - POD2; doing well; No BM yet - voiding freely - Encourage OOB, ISS - pain control with oxycodone - Hgb 8.5 -> 8.7 - PT - Trend fever, WBC - Phenergan, zofran for post-op n/v #Pt complaining of possible CP, prio hx of CAD - EKG normal - f/u trops #HTN -monitor - Norvasc 5mg #HLD - c/w home lipitor -Lipid panel normal #CAD - EKG with lateral lead TWs; no change since prior ekg; recruitment coordinator, Dr Rosario [phone]. -cardiac monitoring -trops neg x2; f/u pending trops - Cardiology consult, recs appreciated - Imdur 120mg daily - cont asa per cards - Will f/u with ortho team on restarting plavix #DM -hold metformin -BGM q6h -ISS #Infrarenal AAA - Followed by vascular as outpt - c/w home meds #Constipation - Senna, colace - Doculax [place] - Miralax PRN PPX Lovenox 40mg qD Zantac FEN NS 42cc/hr Daily BMP Diabetic diet Plan for discharge to [facility] likely tomorrow Plan d/w attending, Dr. Amanda Peralta, PGY1 Visit type - Emergency Visit Emergency Visit: Yes ED Registration Date: 10/15/17 Care time: The patient presented to the Emergency Department on the above date and was hospitalized for further evaluation of their emergent condition. - New Patient This patient is new to me today: No - Critical Care Critical Care patient: No
[2017-10-18] MEDS: INSULIN SLIDING SCALE (NOVOLOG) 1 VIAL SQ SCH ×4 (06:36→21:16)
[2017-10-18 07:36] LABS: HEMATOCRIT 25.5 % (35.4-49); HEMOGLOBIN 8.7 GM/dL (11.7-16.9); MCH 30.3 pg (25.7-33.7); MCHC 34.2 g/dl (32.0-35.9); MEAN CELL VOLUME 88.6 fl (80-96); MEAN PLT VOLUME 7.6 fl (7.5-11.1); PLATELET COUNT 145 K/MM3 (134-434); RBC 2.87 M/mm3 (4.00-5.60); RDW 13.2 % (11.9-15.9); WHITE BLOOD COUNT 8.5 K/mm3 (4.0-10.0)
[2017-10-18 08:17] LABS: ANION GAP 9 (8-16); BLOOD UREA NITROGEN 19 mg/dL (7-18); CALCIUM 7.6 mg/dL (8.5-10.1); CHLORIDE 108 mmol/L (98-107); CO2 25 mmol/L (21-32); CREATININE 0.9 mg/dL (0.7-1.3); GLUCOSE,RANDOM 157 mg/dL (74-106); POTASSIUM 3.8 mmol/L (3.5-5.1); SODIUM 142 mmol/L (136-145)
[2017-10-18] MEDS: SODIUM CHLORIDE 1,000 ML IV SCH ×2 (09:54→17:32)
--- NOTE | 2017-10-18 10:23 | PN ---
Progress Note (short form) - Note Progress Note: Pt seen and examined. S/p Gamma nail. Min c/o pain. AVSS H/H decreased to 8.7/25.5 B/L LE grossly NVI. Dressing CDI Recheck H/H DC planning
[2017-10-18] MEDS: DOCUSATE SODIUM 100 MG CAPSULE (FP) PO SCH (10:25)
[2017-10-18] MEDS: amLODIPine BESYLATE 5 MG TABLET (FP) PO SCH (10:25)
[2017-10-18] MEDS: FAMOTIDINE 20 MG/50 ML IVPB 20 MG/50 ML MG IVPB SCH ×2 (10:25→21:16)
[2017-10-18] MEDS: ASPIRIN COATED 81 MG TABLET.EC PO SCH (10:25)
[2017-10-18] MEDS: ISOSORBIDE MONONITRATE 60 MG TAB.SR.24H (FP) PO SCH (10:25)
[2017-10-18] MEDS: ENOXAPARIN NA (PORCINE) 40 MG/0.4 ML DISP.SYRIN SQ SCH (10:25)
[2017-10-18] MEDS: POLYETHYLENE GLYCOL 3350 119 GM BTL PO PRN (10:26)
--- NOTE | 2017-10-18 10:51 | PN ---
Progress Note (short form) - Note Progress Note: S: no cp, palps, dizziness, sob Current Medications Generic Name Dose Route Start Last Admin Trade Name Freq PRN Reason Stop Dose Admin Acetaminophen 650 mg 10/17/17 12:02 10/17/17 13:37 Tylenol - PO 650 mg Q6H PRN Administration PAIN LEVEL 6-10 Amlodipine Besylate 5 mg 10/18/17 10:00 10/18/17 10:25 Norvasc - PO 5 mg DAILY AYALA Administration Aspirin 81 mg 10/17/17 10:00 10/18/17 10:25 Ecotrin - PO 81 mg DAILY AYALA Administration Atorvastatin Calcium 40 mg 10/16/17 22:00 10/17/17 21:37 Lipitor - PO 40 mg HS [facility] Administration Docusate Sodium 100 mg 10/17/17 10:00 10/18/17 10:25 Colace - PO 100 mg DAILY AYALA Administration Enoxaparin Sodium 40 mg 10/17/17 10:00 10/18/17 10:25 Lovenox - SQ 40 mg DAILY [facility] Administration Famotidine/Sodium Chloride 20 mg in 50 mls @ 100 mls/hr 10/16/17 22:00 10:25 Pepcid 20 Mg Premixed Ivpb - IVPB 100 mls/hr BID AYALA Administration Sodium Chloride 1,000 mls @ 42 mls/hr 10/16/17 13:34 10/18/17 09:54 Normal Saline - IV Not Given ASDIR [facility] Insulin Aspart 1 vial 10/16/17 16:30 10/18/17 06:36 Novolog Vial Sliding Scale - SQ Not Given ACHS [facility] Protocol Isosorbide Mononitrate 120 mg 10/16/17 13:45 10/18/17 10:25 Imdur - PO 120 mg DAILY [facility] Administration Ondansetron HCl 4 mg 10/16/17 13:34 Zofran Injection IVPUSH Q6H PRN NAUSEA AND/OR VOMITING Oxycodone HCl 5 mg 10/17/17 13:23 10/17/17 15:52 Roxicodone - PO 5 mg Q4H PRN Administration PAIN LEVEL 4 - 6 Polyethylene Glycol 17 gm 10/17/17 15:50 10/18/17 10:26 Miralax (For Daily Use) - PO 17 grams DAILY PRN Administration CONSTIPATION Promethazine HCl 12.5 mg 10/16/17 13:34 Phenergan Injection - IVPUSH Q6H PRN NAUSEA-FOR RESCUE AFTER 15 MIN Senna 2 tab 10/16/17 22:00 Senna - PO HS PRN CONSTIPATION Vital Signs Period Temp Pulse Resp BP Sys/Hernandez Pulse Ox Last 24 Hr 97.9 F-99.7 F 77-104 19-20 129-141/60-78 92 nad, calm jvd flat, neck supple rrr nl s1, s2 no mrg ctab, nl effort + bs soft nt nd trace edema, no c/c no jaundice, diaphoresis aaox3 CBC, BMP 10/18/17 07:20 10/18/17 07:20 ekg 09/2017: nsr, leftward axis. lateral twi. similar to priors. (longstanding lateral twi on prior ekg's from [facility] [place] tele: sr cxr: no acute pathology cath [facility] [place] 04/2017 (for angina): lvedp 14. EF 60%, no rwma. mild disease in lad and lcx. patent plad, pLcx, dLcx, om1, om2 stents. mild disease in prrca and mrca. patent mrca stent. 50-60% drca with prior stent, RPL1 90-95% ISR --> janes. [place] [facility] [place] lv/rv size/fn. diastolic dysfunction. 1+ ar, + mac, 1+ mr. no sig phtn. 4.0 cm sinus, 3.9 asc, --> smaller on cta. A/p 82 yo with h/o HTN, HLD, CAD s/p NQWMI and multiple ISR/PCI (most recent 04/2017) , infrarenal AAA s/p aorto bi-iliac endograft repair '10 (with endoleak), mild/ borderline aortic root enlargement with atheroma, niddm, essential tremor, mild memory loss/occ disorientation, neuropathy with poor balance, pulmonary nodules , gerd, depression on zoloft, prostate cancer( s/p TURP/XRT and chemo), who presents s/p fall complicated by rt hip fx with plan for surgical repair. mechanical fall s/p hip fracture - 2nd fall this year. states he has difficulty with balance and ? neuropathy. - ongoing mgm't per pmd/surgery. CAD s/p NQWMI and multiple ISR/PCI (most recent 04/2017) on DAPT/HL - nl LVEF, no anginal sx's. - multiple + prior stents to at least plad, pLcx, dLcx, om1, om2, prrca, mrca, drca, RPL with ISR and recurrent stent placement to at least om2, RPL and possibly more. - On norvasc and imdur as anti-anginal. Con't statin - cont asa. Resume plavix when safe per surgery. htn - angioedema to ACEI - cont home regimen. monitor. 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 - followed by vascular as outpatient
[2017-10-18] MEDS ORDERED: INSULIN (NOVOLOG) ASPART 100 UNITS/ML 10ML VIAL ONE (10:55)
--- NOTE | 2017-10-18 12:37 | PN ---
Teaching Attending Note Name of Resident: Neville Peralta ATTENDING PHYSICIAN STATEMENT Time of evaluation: 11;00 AM I saw and evaluated the patient. I reviewed the resident's note and discussed the case with the resident. I agree with the resident's findings and plan as documented. SUBJECTIVE: patient seen and examined, sleeping, when woken up, denies any symptoms. then reports had vague pain around the 'heart' with eating 1 week ago, denies any pain currently, Some leg pain, mildly confused but easily directable and able to be oriented back. OBJECTIVE: Vital Signs Period Temp Pulse Resp BP Sys/Hernandez Pulse Ox Last 24 Hr 97.9 F-99.7 F 77-104 19-20 129-151/60-78 92 Intake & Output 10/15/17 10/16/17 10/17/17 10/18/17 23:59 23:59 23:59 23:59 Intake Total 2148 1954 533 Output Total 1100 900 600 150 Balance -1100 1248 1354 383 Weight 182 lb 3.2 oz General: no acute distress Chest: no rales or wheezing Abdomen: soft, NT, ND, positive bowel sounds extremities: RLE with no edema, positive DP pulses. neuro: AA, was Ox3 with some prompting, Home Medication List Medication Instructions Recorded Confirmed Type Atorvastatin Calcium 40 mg PO DAILY 10/15/17 10/15/17 History Clopidogrel Bisulfate [Plavix] 75 mg PO DAILY 10/15/17 10/15/17 History Isosorbide Mononitrate [Isosorbide 120 mg PO DAILY 10/15/17 10/15/17 History Mononitrate ER] Primidone [Mysoline -] 50 mg PO BID 10/15/17 10/15/17 History Sertraline HCl [Sertraline HCl] 50 mg PO DAILY 10/15/17 10/15/17 History Active Medications Generic Name Dose Route Start Last Admin Trade Name Freq PRN Reason Stop Dose Admin Acetaminophen 650 mg 10/17/17 12:02 10/17/17 13:37 Tylenol - PO 650 mg Q6H PRN Administration PAIN LEVEL 6-10 Amlodipine Besylate 5 mg 10/18/17 10:00 10/18/17 10:25 Norvasc - PO 5 mg DAILY AYALA Administration Aspirin 81 mg 10/17/17 10:10/18/17 10:25 Ecotrin - PO 81 mg DAILY AYALA Administration Atorvastatin Calcium 40 mg 10/16/17 22:00 10/17/17 21:37 Lipitor - PO 40 mg HS AYALA Administration Docusate Sodium 100 mg 10/17/17 10:00 10/18/17 10:25 Colace - PO 100 mg DAILY AYALA Administration Enoxaparin Sodium 40 mg 10/17/17 10:00 10/18/17 10:25 Lovenox - SQ 40 mg DAILY AYALA Administration Famotidine/Sodium Chloride 20 mg in 50 mls @ 100 mls/hr 10/16/17 22:00 10:25 Pepcid 20 Mg Premixed Ivpb - IVPB 100 mls/hr BID AYALA Administration Sodium Chloride 1,000 mls @ 42 mls/hr 10/16/17 13:34 10/18/17 09:54 Normal Saline - IV Not Given ASDIR AYALA Insulin Aspart 1 vial 10/16/17 16:30 10/18/17 10:59 Novolog Vial Sliding Scale - SQ 2 units ACHS AYALA Administration Protocol Isosorbide Mononitrate 120 mg 10/16/17 13:45 10/18/17 10:25 Imdur - PO 120 mg DAILY AYALA Administration Ondansetron HCl 4 mg 10/16/17 13:34 Zofran Injection IVPUSH Q6H PRN NAUSEA AND/OR VOMITING Oxycodone HCl 5 mg 10/17/17 13:23 10/17/17 15:52 Roxicodone - PO 5 mg Q4H PRN Administration PAIN LEVEL 4 - 6 Polyethylene Glycol 17 gm 10/17/17 15:50 10/18/17 10:26 Miralax (For Daily Use) - PO 17 grams DAILY PRN Administration CONSTIPATION Promethazine HCl 12.5 mg 10/16/17 13:34 Phenergan Injection - IVPUSH Q6H PRN NAUSEA-FOR RESCUE AFTER 15 MIN Senna 2 tab 10/16/17 22:00 Senna - PO HS PRN CONSTIPATION Laboratory Results - last 24 hr 10/17/17 10/17/17 10/17/17 13:50 16:47 21:26 WBC 9.5 RBC 2.78 L Hgb 8.5 L Hct 24.7 L MCV 88.7 MCH 30.6 MCHC 34.4 RDW 13.1 Plt Count 134 MPV 7.0 L Sodium Potassium Chloride Carbon Dioxide Anion Gap BUN Creatinine POC Glucometer 255 175 Random Glucose Calcium 10/18/17 10/18/17 10/18/17 05:49 07:20 07:20 WBC 8.5 RBC 2.87 L Hgb 8.7 L Hct 25.5 L MCV 88.6 MCH 30.3 MCHC 34.2 RDW 13.2 Plt Count 145 MPV 7.6 Sodium 142 Potassium 3.8 Chloride 108 H Carbon Dioxide 25 Anion Gap 9 BUN 19 H Creatinine 0.9 POC Glucometer 173 Random Glucose 157 H D Calcium 7.6 L 10/18/17 10:58 WBC RBC Hgb Hct MCV MCH MCHC RDW Plt Count MPV Sodium Potassium Chloride Carbon Dioxide Anion Gap BUN Creatinine POC Glucometer 172 Random Glucose Calcium ASSESSMENT AND PLAN: 82yo M with PMH HTN, dyslipidemia and CAD s/p multiple pCI (?13) (last 04/2017), AAA s/p endovascular graft repair with mechanical fall and R intertrochanteric fracture -Right intertrochanteric fracture s/p gamma nail 10/16 -Anemia, suspect acute blood loss from trauma/surgery. -?Chest pain (vague story, was comfortably sleeping when seen). -CAD s/p multiple pCI -HTN -AAA s/p endovascular graft repair PLan: doing well postoperatively, mildly confused but redirectable and OX3. Per family, similar history on prior admits. Larkin d/damián, encourage OOB, pain control, taper narcotics as tolerated. Frequent reorientation to environment, PT eval. repeat EKG today unchanged. Follow up troponin I, low suspicion based on description of symptoms and current EKG. Cardiology input appreciated, continue ASA, discussed with orthopedic when able to resume plavix. ANemic this AM, but repeat stable. Monitor, transfuse for Hb <8. Continue nitrates. Start low dose amlodipine and monitor. PT eval. Dispo planning likely to [facility] in 24 hours if doing well and no new concerns. Plan discussed with patient and all questions answered.
--- NOTE | 2017-10-18 14:51 | EKG ---
Test Reason : Blood Pressure : / mmHG Vent. Rate : 083 BPM Atrial Rate : 083 BPM P-R Int : 170 ms QRS Dur : 106 ms QT Int : 346 ms P-R-T Axes : 071 -26 119 degrees QTc Int : 406 ms NORMAL SINUS RHYTHM NONSPECIFIC T WAVE ABNORMALITY ABNORMAL ECG WHEN COMPARED WITH ECG OF 15-OCT-2017 03:34, NO SIGNIFICANT CHANGE WAS FOUND Confirmed by CHUY MARIA MD ([id number]) on 10/18/2017 2:50:50 PM Referred By: Confirmed By:CHUY MARIA MD
--- NOTE | 2017-10-18 15:37 | EKG ---
Test Reason : Blood Pressure : / mmHG Vent. Rate : 082 BPM Atrial Rate : 082 BPM P-R Int : 162 ms QRS Dur : 102 ms QT Int : 364 ms P-R-T Axes : 058 -33 138 degrees QTc Int : 425 ms NORMAL SINUS RHYTHM LEFT AXIS DEVIATION POSSIBLE ANTERIOR INFARCT , AGE UNDETERMINED T WAVE ABNORMALITY, CONSIDER LATERAL ISCHEMIA ABNORMAL ECG WHEN COMPARED WITH ECG OF 18-OCT-2017 11:28, BORDERLINE CRITERIA FOR ANTERIOR INFARCT ARE NOW PRESENT T WAVE INVERSION NOW EVIDENT IN LATERAL LEADS Confirmed by CHUY MARIA MD ([id number]) on 10/18/2017 3:37:04 PM Referred By: LULA ALMANZAR Confirmed By:CHUY MARIA MD
--- NOTE | 2017-10-18 15:56 | HOSP ---
Physical Examination Vital Signs: Vital Signs Temperature 98.8 F 10/18/17 14:00 Pulse Rate 82 10/18/17 14:00 Respiratory Rate 20 10/18/17 14:00 Blood Pressure 131/67 10/18/17 14:00 O2 Sat by Pulse Oximetry (%) 92 L 10/18/17 09:00 Labs: CBC, BMP 10/18/17 07:20 10/18/17 07:20 Hospitalist Encounter Assessment: Cardiac profile noted. Patient seen, denies any chest pain, only reports right hip pain currently. Looks comfortable. EKG repeated: T wave inversion IN v5 which is new from prior this admission. Discussed Troponin I and EKG findings with Dr. He. patient with known lateral ischemia on prior EKGs at [facility]. Not concerning at his point. Also patient asymptomatic. Mild troponin I elevation cou
[2017-10-18] MEDS: CLOPIDOGREL BISULFATE 75 MG TABLET (FP) PO SCH (17:30)
[2017-10-18] MEDS: ACETAMINOPHEN 325 MG TABLET (FP) PO PRN (17:30)
[2017-10-18] MEDS: ATORVASTATIN CA 40 MG TABLET (FP) PO SCH (21:16)
--- NOTE | 2017-10-19 05:38 | PN ---
Physical Exam: SUBJECTIVE: Patient seen and examined by me this AM - Pt w/ elevated trops yesterday and TWI in v5 on ekg. However, after discussion with cardiology and comparison to prior ekgs, no new changes. Trops stabilized overnight with trend. Likely rhabdo from surgery. No intervention at this time. Pt started on plavix yesterday. OBJECTIVE: Vital Signs Intake & Output 10/16/17 10/17/17 10/18/17 10/19/17 23:59 23:59 23:59 23:59 Intake Total 2148 1954 1433 500 Output Total 900 600 550 Balance 1248 1354 883 500 Period Temp Pulse Resp BP Sys/Hernandez Pulse Ox Last 24 Hr 97.9 F-98.8 F 68-104 19-20 131-151/67-87 92-95 GENERAL: A&Ox2. Elderly man, lying bed. The patient is awake, alert, and fully oriented, in no acute distress. HEAD: Normal with no signs of trauma. EYES: PERRL, extraocular movements intact, sclera anicteric, conjunctiva clear. No ptosis. ENT: Ears normal, nares patent, oropharynx clear without exudates, moist mucous membranes. NECK: Trachea midline, full range of motion, supple. LUNGS: Trace rhonchi at bases. no wheezes, no crackles, no accessory muscle use. HEART: Regular rate and rhythm, S1, S2 without murmur, rub or gallop. ABDOMEN: Soft, nontender, nondistended, normoactive bowel sounds, no guarding, no rebound, no hepatosplenomegaly, no masses. EXTREMITIES: 2+ pulses, warm, well-perfused, no edema. Good pulses, good sensation distally in both legs BL, no edema. Dressing on R posterior hip c/d/i NEUROLOGICAL: Cranial nerves II through XII grossly intact. Normal speech, gait not observed. PSYCH: Normal mood, normal affect. SKIN: Warm, dry, normal turgor, no rashes or lesions noted Laboratory Results - last 24 hr CBC, BMP 10/18/17 07:20 10/18/17 07:20 10/18/17 10/18/17 10/18/17 05:49 07:20 07:20 WBC 8.5 RBC 2.87 L Hgb 8.7 L Hct 25.5 L MCV 88.6 MCH 30.3 MCHC 34.2 RDW 13.2 Plt Count 145 MPV 7.6 Sodium 142 Potassium 3.8 Chloride 108 H Carbon Dioxide 25 Anion Gap 9 BUN 19 H Creatinine 0.9 POC Glucometer 173 Random Glucose 157 H D Calcium 7.6 L Creatine Kinase 1996 H Creatine Kinase Index 0.3 CK-MB (CK-2) 6.224 H Troponin I 0.15 H D 10/18/17 10/18/17 10/18/17 10:58 11:00 15:30 WBC RBC Hgb Hct MCV MCH MCHC RDW Plt Count MPV Sodium Potassium Chloride Carbon Dioxide Anion Gap BUN Creatinine POC Glucometer 172 Random Glucose Calcium Creatine Kinase Cancelled Creatine Kinase Index CK-MB (CK-2) Troponin I Cancelled 0.21 H D 10/18/17 10/18/17 10/18/17 17:04 20:15 20:58 WBC RBC Hgb Hct MCV MCH MCHC RDW Plt Count MPV Sodium Potassium Chloride Carbon Dioxide Anion Gap BUN Creatinine POC Glucometer 197 168 Random Glucose Calcium Creatine Kinase Creatine Kinase Index CK-MB (CK-2) Troponin I 0.20 H Active Medications Generic Name Dose Route Start Last Admin Trade Name Freq PRN Reason Stop Dose Admin Acetaminophen 650 mg 10/17/17 12:02 10/18/17 17:30 Tylenol - PO 650 mg Q6H PRN Administration PAIN LEVEL 6-10 Amlodipine Besylate 5 mg 10/18/17 10:00 10/18/17 10:25 Norvasc - PO 5 mg DAILY AYALA Administration Aspirin 81 mg 10/17/17 10:00 10/18/17 10:25 Ecotrin - PO 81 mg DAILY AYALA Administration Atorvastatin Calcium 40 mg 10/16/17 22:00 10/18/17 21:16 Lipitor - PO 40 mg HS AYALA Administration Clopidogrel Bisulfate 75 mg 10/18/17 14:45 10/18/17 17:30 Plavix - PO 75 mg DAILY AYALA Administration Docusate Sodium 100 mg 10/17/17 10:00 10/18/17 10:25 Colace - PO 100 mg DAILY AYALA Administration Enoxaparin Sodium 40 mg 10/17/17 10:00 10/18/17 10:25 Lovenox - SQ 40 mg DAILY AYALA Administration Famotidine/Sodium Chloride 20 mg in 50 mls @ 100 mls/hr 10/16/17 22:00 21:16 Pepcid 20 Mg Premixed Ivpb - IVPB 100 mls/hr BID AYALA Administration Sodium Chloride 1,000 mls @ 42 mls/hr 10/16/17 13:34 10/18/17 17:32 Normal Saline - IV Not Given ASDIR AYALA Insulin Aspart 1 vial 10/16/17 16:30 10/18/17 21:16 Novolog Vial Sliding Scale - SQ 2 units ACHS AYALA Administration Protocol Isosorbide Mononitrate 120 mg 10/16/17 13:45 10/18/17 10:25 Imdur - PO 120 mg DAILY AYALA Administration Ondansetron HCl 4 mg 10/16/17 13:34 Zofran Injection IVPUSH Q6H PRN NAUSEA AND/OR VOMITING Oxycodone HCl 5 mg 10/17/17 13:23 10/17/17 15:52 Roxicodone - PO 5 mg Q4H PRN Administration PAIN LEVEL 4 - 6 Polyethylene Glycol 17 gm 10/17/17 15:50 10/18/17 10:26 Miralax (For Daily Use) - PO 17 grams DAILY PRN Administration CONSTIPATION Promethazine HCl 12.5 mg 10/16/17 13:34 Phenergan Injection - IVPUSH Q6H PRN NAUSEA-FOR RESCUE AFTER 15 MIN Senna 2 tab 10/16/17 22:00 Senna - PO HS PRN CONSTIPATION No micro CXR 10/15 - No acute pathology Hip/pelvis XR 10/15 - An AP view the pelvis and images of the right hip reveal an acute right femoral intertrochanteric fracture with varus deformity. There are pelvic clips and penile prosthesis. There is an aorto iliac vascular stent. The other bones are intact. EKG 10/15 - NSR 65, LAD, TWIs in lateral leads, qtc 440 ASSESSMENT/PLAN: 82 y/o m with PMH of HTN, HLD, DM, CAD (x13 stents) prostate cancer(s/p RT and chemo), who was brought to ED after fall and found to have intertrochanteric fracture. #R Intertrochanteric fracture - Imaging confirmed - POD2; doing well; No BM yet - voiding freely - Encourage OOB, ISS - pain control with oxycodone - Hgb 8.5 -> 8.7 - PT - Trend fever, WBC - Phenergan, zofran for post-op n/v #Pt complaining of possible CP, prio hx of CAD - EKG normal - f/u trops #HTN -monitor - Norvasc 5mg #HLD - c/w home lipitor -Lipid panel normal #CAD - EKG with lateral lead TWs; no change since prior ekg; cokeman, Dr Rosario [phone]. -cardiac monitoring -trops neg x2; f/u pending trops - Cardiology consult, recs appreciated - Imdur 120mg daily - cont asa per cards - Will f/u with ortho team on restarting plavix #DM -hold metformin -BGM q6h -ISS #Infrarenal AAA - Followed by vascular as outpt - c/w home meds #Constipation - Senna, colace - Doculax CO - Miralax PRN PPX Lovenox 40mg qD Zantac FEN NS 42cc/hr Daily BMP Diabetic diet Plan for discharge to [facility] likely tomorrow Plan d/w attending, Dr. Amanda Peralta, PGY1
[2017-10-19] MEDS: INSULIN SLIDING SCALE (NOVOLOG) 1 VIAL SQ SCH ×3 (06:25→17:03)
[2017-10-19 08:49] LABS: BASO % 1.2 % (0-2.0); EOS % 5.5 % (0-4.5); HEMATOCRIT 24.5 % (35.4-49); HEMOGLOBIN 8.3 GM/dL (11.7-16.9); LYMPH % 16.5 % (8-40); MCH 30.1 pg (25.7-33.7); MCHC 33.8 g/dl (32.0-35.9); MEAN CELL VOLUME 88.9 fl (80-96); MEAN PLT VOLUME 7.2 fl (7.5-11.1); NEUT % 61.8 % (42.8-82.8); PLATELET COUNT 174 K/MM3 (134-434); RBC 2.76 M/mm3 (4.00-5.60); RDW 13.3 % (11.9-15.9); WHITE BLOOD COUNT 6.7 K/mm3 (4.0-10.0)
[2017-10-19 09:11] LABS: ALBUMIN 2.8 g/dl (3.4-5.0); ANION GAP 6 (8-16); BLOOD UREA NITROGEN 16 mg/dL (7-18); CALCIUM 7.7 mg/dL (8.5-10.1); CHLORIDE 110 mmol/L (98-107); CO2 28 mmol/L (21-32); GLUCOSE,RANDOM 118 mg/dL (74-106); MAGNESIUM 2.1 mg/dL (1.8-2.4); PHOSPHOROUS 1.8 mg/dL (2.5-4.9); POTASSIUM 3.8 mmol/L (3.5-5.1); SGOT/AST 47 U/L (15-37); SODIUM 144 mmol/L (136-145)
[2017-10-19 09:14] LABS: ALK PHOS 60 U/L (45-117); BILIRUBIN,TOTAL 0.9 mg/dL (0.2-1.0); CREATININE 0.8 mg/dL (0.7-1.3); SGPT/ALT 40 U/L (12-78); TOT PROT 5.4 g/dl (6.4-8.2)
--- NOTE | 2017-10-19 09:58 | PN ---
Progress Note (short form) - Note Progress Note: Ortho Pt seen and examined s/p right IM gamma nail Selected Entries 10/19/17 09:02 Temperature 97.9 F Pulse Rate 71 Respiratory 18 Rate Blood Pressure 153/71 Laboratory Tests 10/19/17 07:50 WBC 6.7 Hgb 8.3 L Hct 24.5 L Plt Count 174 dressing c/d/i, calf soft, nt nvi a/p PT wbat dvt ppx pain control d/c planning
[2017-10-19] MEDS ORDERED: PT OWN MED DRAWER 7, Y5N ONE (10:05)
[2017-10-19] MEDS: ACETAMINOPHEN 325 MG TABLET (FP) PO PRN (10:08)
[2017-10-19] MEDS: CLOPIDOGREL BISULFATE 75 MG TABLET (FP) PO SCH (10:08)
[2017-10-19] MEDS: ISOSORBIDE MONONITRATE 60 MG TAB.SR.24H (FP) PO SCH (10:08)
[2017-10-19] MEDS: ASPIRIN COATED 81 MG TABLET.EC PO SCH (10:08)
[2017-10-19] MEDS: DOCUSATE SODIUM 100 MG CAPSULE (FP) PO SCH (10:08)
[2017-10-19] MEDS: amLODIPine BESYLATE 5 MG TABLET (FP) PO SCH (10:09)
[2017-10-19] MEDS: ENOXAPARIN NA (PORCINE) 40 MG/0.4 ML DISP.SYRIN SQ SCH (10:09)
[2017-10-19] MEDS: FAMOTIDINE 20 MG/50 ML IVPB 20 MG/50 ML MG IVPB SCH (10:09)
[2017-10-19] MEDS ORDERED: PRIMIDONE 50 MG TABLET PO SCH (11:00)
--- NOTE | 2017-10-19 11:29 | PN ---
Progress Note (short form) - Note Progress Note: S: no cp, palps, dizziness, sob Current Medications Generic Name Dose Route Start Last Admin Trade Name Freq PRN Reason Stop Dose Admin Acetaminophen 650 mg 10/17/17 12:02 10/19/17 10:08 Tylenol - PO 650 mg Q6H PRN Administration PAIN LEVEL 6-10 Amlodipine Besylate 5 mg 10/18/17 10:00 10/19/17 10:09 Norvasc - PO 5 mg DAILY AYALA Administration Aspirin 81 mg 10/17/17 10:00 10/19/17 10:08 Ecotrin - PO 81 mg DAILY AYALA Administration Atorvastatin Calcium 40 mg 10/16/17 22:00 10/18/17 21:16 Lipitor - PO 40 mg HS AYALA Administration Clopidogrel Bisulfate 75 mg 10/18/17 14:45 10/19/17 10:08 Plavix - PO 75 mg DAILY AYALA Administration Docusate Sodium 100 mg 10/17/17 10:00 10/19/17 10:08 Colace - PO 100 mg DAILY AYALA Administration Enoxaparin Sodium 40 mg 10/17/17 10:00 10/19/17 10:09 Lovenox - SQ 40 mg DAILY AYALA Administration Insulin Aspart 1 vial 10/16/17 16:30 10/19/17 06:25 Novolog Vial Sliding Scale - SQ 2 units ACHS AYALA Administration Protocol Isosorbide Mononitrate 120 mg 10/16/17 13:45 10/19/17 10:08 Imdur - PO 120 mg DAILY AYALA Administration Ondansetron HCl 4 mg 10/16/17 13:34 Zofran Injection IVPUSH Q6H PRN NAUSEA AND/OR VOMITING Oxycodone HCl 5 mg 10/17/17 13:23 10/17/17 15:52 Roxicodone - PO 5 mg Q4H PRN Administration PAIN LEVEL 4 - 6 Polyethylene Glycol 17 gm 10/17/17 15:50 10/18/17 10:26 Miralax (For Daily Use) - PO 17 grams DAILY PRN Administration CONSTIPATION Primidone 50 mg 10/19/17 11:00 Mysoline - PO BID AYALA Promethazine HCl 12.5 mg 10/16/17 13:34 Phenergan Injection - IVPUSH Q6H PRN NAUSEA-FOR RESCUE AFTER 15 MIN Senna 2 tab 10/16/17 22:00 Senna - PO HS PRN CONSTIPATION Sertraline HCl 50 mg 10/19/17 22:00 Zoloft - PO HS AYALA Vital Signs Period Temp Pulse Resp BP Sys/Hernandez Pulse Ox Last 24 Hr 97.9 F-98.8 F 68-82 18-22 131-153/63-87 95-95 nad, calm jvd flat, neck supple rrr nl s1, s2 no mrg ctab, nl effort + bs soft nt nd trace edema, no c/c no jaundice, diaphoresis aaox3 Laboratory Last Values WBC 6.7 K/mm3 (4.0-10.0) 10/19/17 07:50 RBC 2.76 M/mm3 (4.00-5.60) L 10/19/17 07:50 Hgb 8.3 GM/dL (11.7-16.9) L 10/19/17 07:50 Hct 24.5 % (35.4-49) L 10/19/17 07:50 MCV 88.9 fl (80-96) 10/19/17 07:50 MCH 30.1 pg (25.7-33.7) 10/19/17 07:50 MCHC 33.8 g/dl (32.0-35.9) 10/19/17 07:50 RDW 13.3 % (11.9-15.9) 10/19/17 07:50 Plt Count 174 K/MM3 (134-434) 10/19/17 07:50 MPV 7.2 fl (7.5-11.1) L 10/19/17 07:50 Neutrophils % 61.8 % (42.8-82.8) 10/19/17 07:50 Lymphocytes % 16.5 % (8-40) 10/19/17 07:50 Monocytes % 15.0 % (3.8-10.2) H 10/19/17 07:50 Eosinophils % 5.5 % (0-4.5) H D 10/19/17 07:50 Basophils % 1.2 % (0-2.0) 10/19/17 07:50 PT with INR 12.90 SEC (9.98-11.88) H 10/16/17 11:35 INR 1.14 (0.82-1.09) 10/16/17 11:35 PTT (Actin FS) 24.0 SECONDS (26.9-34.4) L 10/15/17 01:41 Sodium 144 mmol/L (136-145) 10/19/17 07:50 Potassium 3.8 mmol/L (3.5-5.1) 10/19/17 07:50 Chloride 110 mmol/L (98-107) H 10/19/17 07:50 Carbon Dioxide 28 mmol/L (21-32) 10/19/17 07:50 Anion Gap 6 (8-16) L 10/19/17 07:50 BUN 16 mg/dL (7-18) 10/19/17 07:50 Creatinine 0.8 mg/dL (0.7-1.3) 10/19/17 07:50 Creat Clearance w eGFR > 60 (>60) 10/19/17 07:50 POC Glucometer 165 UNITS (80-120) 10/19/17 05:52 Random Glucose 118 mg/dL (74-106) H D 10/19/17 07:50 Calcium 7.7 mg/dL (8.5-10.1) L 10/19/17 07:50 Phosphorus 1.8 mg/dL (2.5-4.9) L D 10/19/17 07:50 Magnesium 2.1 mg/dL (1.8-2.4) 10/19/17 07:50 Total Bilirubin 0.9 mg/dL (0.2-1.0) 10/19/17 07:50 AST 47 U/L (15-37) H D 10/19/17 07:50 ALT 40 U/L (12-78) D 10/19/17 07:50 Alkaline Phosphatase 60 U/L (45-117) D 10/19/17 07:50 Creatine Kinase Cancelled 10/18/17 11:00 Creatine Kinase Index 0.3 % (0.0-5.0) 10/18/17 07:20 CK-MB (CK-2) 6.224 ng/mL (0.5-3.6) H 10/18/17 07:20 Troponin I 0.20 ng/ml (0.00-0.05) H 10/18/17 20:15 Total Protein 5.4 g/dl (6.4-8.2) L 10/19/17 07:50 Albumin 2.8 g/dl (3.4-5.0) L 10/19/17 07:50 Triglycerides 99 mg/dL (35-160) 10/15/17 07:42 Cholesterol 113 mg/dL (50-200) 10/15/17 07:42 Total LDL Cholesterol 67 mg/dL (5-100) 10/15/17 07:42 HDL Cholesterol 35 mg/dL (40-60) L 10/15/17 07:42 Urine Color Yellow 10/15/17 06:51 Urine Appearance Clear 10/15/17 06:51 Urine pH 5.0 (5.0-8.0) 10/15/17 06:51 Ur Specific Ophiem 1.025 (1.001-1.035) 10/15/17 06:51 Urine Protein Negative (NEGATIVE) 10/15/17 06:51 Urine Glucose (UA) 1+ (NEGATIVE) H 10/15/17 06:51 Urine Ketones Negative (NEGATIVE) 10/15/17 06:51 Urine Blood Negative (NEGATIVE) 10/15/17 06:51 Urine Nitrite Negative (NEGATIVE) 10/15/17 06:51 Urine Bilirubin Negative (NEGATIVE) 10/15/17 06:51 Urine Urobilinogen 2.0 mg/dL (0.2-1.0) 10/15/17 06:51 Ur Leukocyte Esterase Negative (NEGATIVE) 10/15/17 06:51 Blood Type B POSITIVE 10/15/17 01:41 Antibody Screen Negative 10/15/17 01:41 Crossmatch See Detail 10/19/17 11:10 ekg 09/2017: nsr, leftward axis. lateral twi. similar to priors. (longstanding lateral twi on prior ekg's from [facility] [place] cxr: no acute pathology cath [facility] [place] 04/2017 (for angina): lvedp 14. EF 60%, no rwma. mild disease in lad and lcx. patent plad, pLcx, dLcx, om1, om2 stents. mild disease in prrca and mrca. patent mrca stent. 50-60% drca with prior stent, RPL1 90-95% ISR --> janes. echo 01/2017 [facility] [place]: nl lv/rv size/fn. diastolic dysfunction. 1+ ar, + mac, 1+ mr. no sig phtn. 4.0 cm sinus, 3.9 asc, --> smaller on cta. A/p 82 yo with h/o HTN, HLD, CAD s/p NQWMI and multiple ISR/PCI (most recent 04/2017) , infrarenal AAA s/p aorto bi-iliac endograft repair '10 (with endoleak), mild/ borderline aortic root enlargement with atheroma, niddm, essential tremor, mild memory loss/occ disorientation, neuropathy with poor balance, pulmonary nodules , gerd, depression on zoloft, prostate cancer( s/p TURP/XRT and chemo), who presents s/p fall complicated by rt hip fx with plan for surgical repair. mechanical fall s/p hip fracture - 2nd fall this year. states he has difficulty with balance and ? neuropathy. - ongoing mgm't per pmd/surgery. CAD s/p NQWMI and multiple ISR/PCI (most recent 04/2017) on DAPT/HL - nl LVEF, no anginal sx's. - multiple + prior stents to at least plad, pLcx, dLcx, om1, om2, prrca, mrca, drca, RPL with ISR and recurrent stent placement to at least om2, RPL and possibly more. - On norvasc and imdur as anti-anginal. Con't statin - cont asa, plavix. - no signs acs, CE's in borderline range only htn - angioedema to ACEI - cont home regimen. monitor. 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 - followed by vascular as outpatient cardiac beckwith stable for dc
--- NOTE | 2017-10-19 14:49 | PN ---
Teaching Attending Note Name of Resident: Neville Peralta ATTENDING PHYSICIAN STATEMENT Time of evaluation: 10:50 AM I saw and evaluated the patient. I reviewed the resident's note and discussed the case with the resident. I agree with the resident's findings and plan as documented. SUBJECTIVE: patient seen and examined. Right hip, otherwise no complaints. No chest pain, palpitations, dyspnea or dizziness. AAOX3 currently. OBJECTIVE: Vital Signs Period Temp Pulse Resp BP Sys/Hernandez Pulse Ox Last 24 Hr 97.9 F-98.4 F 68-76 18-22 125-153/60-87 95-95 Intake & Output 10/16/17 10/17/17 10/18/17 10/19/17 23:59 23:59 23:59 23:59 Intake Total 2148 1954 1433 800 Output Total 900 600 550 Balance 1248 1354 883 800 general: lying in bed in no acute distress extremities: no edema, DP pulses. Neuro: AAOx3 Home Medication List Medication Instructions Recorded Confirmed Type Atorvastatin Calcium 40 mg PO DAILY 10/15/17 10/15/17 History Clopidogrel Bisulfate [Plavix] 75 mg PO DAILY 10/15/17 10/15/17 History Isosorbide Mononitrate [Isosorbide 120 mg PO DAILY 10/15/17 10/15/17 History Mononitrate ER] Primidone [Mysoline -] 50 mg PO BID 10/15/17 10/15/17 History Sertraline HCl [Sertraline HCl] 50 mg PO DAILY 10/15/17 10/15/17 History Active Medications Generic Name Dose Route Start Last Admin Trade Name Raulq PRN Reason Stop Dose Admin Acetaminophen 650 mg 10/17/17 12:02 10/19/17 10:08 Tylenol - PO 650 mg Q6H PRN Administration PAIN LEVEL 6-10 Amlodipine Besylate 5 mg 10/18/17 10:00 10/19/17 10:09 Norvasc - PO 5 mg DAILY AYALA Administration Aspirin 81 mg 10/17/17 10:00 10/19/17 10:08 Ecotrin - PO 81 mg DAILY AYALA Administration Atorvastatin Calcium 40 mg 10/16/17 22:00 10/18/17 21:16 Lipitor - PO 40 mg HS AYALA Administration Clopidogrel Bisulfate 75 mg 10/18/17 14:45 10/19/17 10:08 Plavix - PO 75 mg DAILY [facility] Administration Docusate Sodium 100 mg 10/17/17 10:00 10/19/17 10:08 Colace - PO 100 mg DAILY AYALA Administration Enoxaparin Sodium 40 mg 10/17/17 10:00 10/19/17 10:09 Lovenox - SQ 40 mg DAILY AYALA Administration Insulin Aspart 1 vial 10/16/17 16:30 10/19/17 11:42 Novolog Vial Sliding Scale - SQ 2 units ACHS AYALA Administration Protocol Isosorbide Mononitrate 120 mg 10/16/17 13:45 10/19/17 10:08 Imdur - PO 120 mg DAILY AYALA Administration Ondansetron HCl 4 mg 10/16/17 13:34 Zofran Injection IVPUSH Q6H PRN NAUSEA AND/OR VOMITING Oxycodone HCl 5 mg 10/17/17 13:23 10/17/17 15:52 Roxicodone - PO 5 mg Q4H PRN Administration PAIN LEVEL 4 - 6 Polyethylene Glycol 17 gm 10/17/17 15:50 10/18/17 10:26 Miralax (For Daily Use) - PO 17 grams DAILY PRN Administration CONSTIPATION Primidone 50 mg 10/19/17 11:00 10/19/17 12:38 Mysoline - PO 50 mg BID [facility] Administration Promethazine HCl 12.5 mg 10/16/17 13:34 Phenergan Injection - IVPUSH Q6H PRN NAUSEA-FOR RESCUE AFTER 15 MIN Senna 2 tab 10/16/17 22:00 Senna - PO HS PRN CONSTIPATION Sertraline HCl 50 mg 10/19/17 22:00 Zoloft - PO HS [facility] Laboratory Results - last 24 hr 10/18/17 10/18/17 10/18/17 15:30 17:04 20:15 WBC RBC Hgb Hct MCV MCH MCHC RDW Plt Count MPV Neutrophils % Lymphocytes % Monocytes % Eosinophils % Basophils % Sodium Potassium Chloride Carbon Dioxide Anion Gap BUN Creatinine Creat Clearance w eGFR POC Glucometer 197 Random Glucose Calcium Phosphorus Magnesium Total Bilirubin AST ALT Alkaline Phosphatase Troponin I 0.21 H D 0.20 H Total Protein Albumin Blood Type Antibody Screen Crossmatch 10/18/17 10/19/17 10/19/17 20:58 05:52 07:50 WBC 6.7 RBC 2.76 L Hgb 8.3 L Hct 24.5 L MCV 88.9 MCH 30.1 MCHC 33.8 RDW 13.3 Plt Count 174 MPV 7.2 L Neutrophils % 61.8 Lymphocytes % 16.5 Monocytes % 15.0 H Eosinophils % 5.5 H D Basophils % 1.2 Sodium Potassium Chloride Carbon Dioxide Anion Gap BUN Creatinine Creat Clearance w eGFR POC Glucometer 168 165 Random Glucose Calcium Phosphorus Magnesium Total Bilirubin AST ALT Alkaline Phosphatase Troponin I Total Protein Albumin Blood Type Antibody Screen Crossmatch 10/19/17 10/19/17 10/19/17 07:50 11:10 11:42 WBC RBC Hgb Hct MCV MCH MCHC RDW Plt Count MPV Neutrophils % Lymphocytes % Monocytes % Eosinophils % Basophils % Sodium 144 Potassium 3.8 Chloride 110 H Carbon Dioxide 28 Anion Gap 6 L BUN 16 Creatinine 0.8 Creat Clearance w eGFR > 60 POC Glucometer 174 Random Glucose 118 H D Calcium 7.7 L Phosphorus 1.8 L D Magnesium 2.1 Total Bilirubin 0.9 AST 47 H D ALT 40 D Alkaline Phosphatase 60 D Troponin I Total Protein 5.4 L Albumin 2.8 L Blood Type B POSITIVE Antibody Screen Negative Crossmatch See Detail ASSESSMENT AND PLAN: 82yo M with PMH HTN, dyslipidemia and CAD s/p multiple pCI (?13) (last 04/2017), AAA s/p endovascular graft repair with mechanical fall and R intertrochanteric fracture -Right intertrochanteric fracture s/p gamma nail 10/16 -Anemia, suspect acute blood loss from trauma/surgery, hb stabilized now. -Mild troponin I elevation, suspect demand from hip surgery/anemia vs rhabdomyolysis. no concerns for ACS. -CAD s/p multiple pCI -HTN -AAA s/p endovascular graft repair PLan: Troponin overall unchanged. cardiology input appreciated. No concerns for ACS. ASA/plavix resumed with no concerns. Continue nitrates. initial drop in H/h post op, now stabilized, no concerns for ongoing bleed. however, given CAD and minimal demand ischemia concerns, will transfuse 1 unit PRBC to aim for Hb around 10. No prior concerns for fluid overload or CHF. OX3, continue pain control with acetaminophen. Patient advised to ask for oxycodone if needed. Bowel regimen, incentive spirometry. continued PT Address with orthopedic if would prefer continued lovenox on top of ASA/plavix. Plan for d/c to [facility] post transfusion today if no events. Plan discussed with patient and all questions answered.
--- NOTE | 2017-10-19 15:23 | DS ---
Physical Exam: SUBJECTIVE: Patient seen and examined by me this AM - Pt w/ elevated trops yesterday and TWI in v5 on ekg. However, after discussion with cardiology and comparison to prior ekgs, no new changes. Trops stabilized overnight with trend. Likely rhabdo from surgery. No intervention at this time. Pt started on plavix yesterday. - No major overnight events. Pt doing well, pt well controlled. Complaining only of mild R hip pain/tenderness. More oriented, less confused today, A&Ox3. Denies any f/c, SOB, CP, WARD, Ad pain, Diarrhea, dysuria, rashes, neuro or vascular symptoms in R leg. Will receive one unit of pRBCs, as Hgb 8.7 this AM and pt with significant cardiac comorbidities. OBJECTIVE: Vital Signs Intake & Output 10/16/17 10/17/17 10/18/17 10/19/17 23:59 23:59 23:59 23:59 Intake Total 2148 1954 1433 800 Output Total 900 600 550 Balance 1248 1354 883 800 Period Temp Pulse Resp BP Sys/Hernandez Pulse Ox Last 24 Hr 97.9 F-98.4 F 68-76 18-22 125-153/60-87 95-95 PHYSICAL EXAM GENERAL: A&Ox3. Elderly man, lying bed. The patient is awake, alert, and fully oriented, in no acute distress. HEAD: Normal with no signs of trauma. EYES: PERRL, extraocular movements intact, sclera anicteric, conjunctiva clear. No ptosis. ENT: Ears normal, nares patent, oropharynx clear without exudates, moist mucous membranes. NECK: Trachea midline, full range of motion, supple. LUNGS: Upper airway congestion. no wheezes, no crackles, no accessory muscle use. HEART: Regular rate and rhythm, S1, S2 without murmur, rub or gallop. ABDOMEN: Soft, nontender, nondistended, normoactive bowel sounds, no guarding, no rebound, no hepatosplenomegaly, no masses. EXTREMITIES: Dressing on R posterior hip c/d/i. Mild tenderness to palpation, mild pain with passive/active movement at hip. 2+ pulses, warm, well-perfused, no edema. Good pulses, good sensation distally in both legs BL, no edema. NEUROLOGICAL: Cranial nerves II through XII grossly intact. Normal speech, gait not observed. PSYCH: Normal mood, normal affect. SKIN: Warm, dry, normal turgor, no rashes or lesions noted LABS Laboratory Results - last 24 hr CBC, BMP 10/19/17 07:50 10/19/17 07:50 10/18/17 10/18/17 10/18/17 15:30 17:04 20:15 WBC RBC Hgb Hct MCV MCH MCHC RDW Plt Count MPV Neutrophils % Lymphocytes % Monocytes % Eosinophils % Basophils % Sodium Potassium Chloride Carbon Dioxide Anion Gap BUN Creatinine Creat Clearance w eGFR POC Glucometer 197 Random Glucose Calcium Phosphorus Magnesium Total Bilirubin AST ALT Alkaline Phosphatase Troponin I 0.21 H D 0.20 H Total Protein Albumin Blood Type Antibody Screen Crossmatch 10/18/17 10/19/17 10/19/17 20:58 05:52 07:50 WBC 6.7 RBC 2.76 L Hgb 8.3 L Hct 24.5 L MCV 88.9 MCH 30.1 MCHC 33.8 RDW 13.3 Plt Count 174 MPV 7.2 L Neutrophils % 61.8 Lymphocytes % 16.5 Monocytes % 15.0 H Eosinophils % 5.5 H D Basophils % 1.2 Sodium Potassium Chloride Carbon Dioxide Anion Gap BUN Creatinine Creat Clearance w eGFR POC Glucometer 168 165 Random Glucose Calcium Phosphorus Magnesium Total Bilirubin AST ALT Alkaline Phosphatase Troponin I Total Protein Albumin Blood Type Antibody Screen Crossmatch 10/19/17 10/19/17 10/19/17 07:50 11:10 11:42 WBC RBC Hgb Hct MCV MCH MCHC RDW Plt Count MPV Neutrophils % Lymphocytes % Monocytes % Eosinophils % Basophils % Sodium 144 Potassium 3.8 Chloride 110 H Carbon Dioxide 28 Anion Gap 6 L BUN 16 Creatinine 0.8 Creat Clearance w eGFR > 60 POC Glucometer 174 Random Glucose 118 H D Calcium 7.7 L Phosphorus 1.8 L D Magnesium 2.1 Total Bilirubin 0.9 AST 47 H D ALT 40 D Alkaline Phosphatase 60 D Troponin I Total Protein 5.4 L Albumin 2.8 L Blood Type B POSITIVE Antibody Screen Negative Crossmatch See Detail No micro CXR 10/15 - No acute pathology Hip/pelvis XR 10/15 - An AP view the pelvis and images of the right hip reveal an acute right femoral intertrochanteric fracture with varus deformity. There are pelvic clips and penile prosthesis. There is an aorto iliac vascular stent. The other bones are intact. EKG 10/15 - NSR 65, LAD, TWIs in lateral leads, qtc 440 HOSPITAL COURSE: 82 y/o m with PMH of HTN, HLD, DM, CAD (x13 stents) prostate cancer(s/p RT and chemo), who was brought to ED after fall while dancing w/ residual R hip pain. Denied any WARD, chest pain, SOb, palpitations, N/V on presentation. No lab abnormalities in ED. Hip XR notable R femur intertronchanteric fracture w/ varus deformity. Normal CXR, EKG w/ TWIs in lateral leads, however seen on prior EKG. Ortho was consulted, as well as cardiology for cardiac clearance for surgery. Pt with significant cardiac hx (13 prior stents), maintained on ASA, plavix satish-op and cleared for procedure by cardiology team. Pt taken for Gamma Nail procedure on 10/16. No post-op complications. Pain well controlled with oxycodone. No post-op fevers, CP, SOB, vascular or neuro changes in R leg. Pt complaining of vague chest pain in AM on 10/18, however denied CP in PM and EKG unremarkable, trops with borderline elevation at max of 0.2, but later determined to be due to likely rhabdo from surgery. Pt cleared for discharge by ortho and cardiology on 10/19. Given one unit of pRBCs, as mildly anemic (8.7) on day of discharge and decision made for transfusion given significant cardiac comorbidities. Pt scheduled for f/u with Dr. Romano in clinic in one week with discharge to [facility] [place]. Plan for dual antiplatelet tx on discharge. Date of Admission:10/15/17 Date of Discharge: 10/19/17 Pt stable and medically cleared for discharge to [facility] with outpt f/u with Dr. Romano in one week for post-op check-up. Minutes to complete discharge: 35 Discharge Summary Reason For Visit: INTEROCHANTERIC FX OF RIGHT FEMURE HIP Current Active Problems Hip fracture (Acute) Intertrochanteric fracture of right femur (Acute) Condition: Guarded - Instructions Diet, Activity, Other Instructions: During your stay you were treated for a fracture of your right leg. Your surgeon was Dr. Romano. Medications: The following medications were added to your regimen. Please take them as described below: Norvasc 5mg, one pill by mouth, once a day Colace, one pill by mouth, once a day for constipation Senna, take 2 tablets by mouth, as needed for constipation Miralax, once a day by mouth, if you are persistently constipated for >3 days Aspirin 81mg, one pill once a day, by mouth Oxycodone 5mg, one pill every four hours, if your pain becomes too severe Please continue taking all other home medication as previously prescribed. Follow-ups: Please schedule an appointment to see your primary care physician in one week for further management of your outpatient medication regimen. Please schedule a follow-up appointment with the orthopedic surgeon who performed your procedure, Dr. Romano, in one week for a post-operative check-up. Their contact information has been provided in this packet. Please call to schedule an appointment. Activity: You are approved for weight bearing on your R leg as tolerated. If you feel pain in your hip, please take the above prescribed pain medication. Please continue with your physical therapy at your rehab facility. Please return to the hospital if you experience any of the following symptoms: - Numbness/inability to move your right leg - Your leg becomes cold or you cannot feel a pulse - New fevers, cough, trouble breathing - Any new or concerning symptoms Referrals: Laron Romano MD [Staff Physician] - 1 Week ON STAFF,NOT [Primary Care Provider] - Disposition: INTERMEDIATE FACILITY - Home Medications Comprehensive Discharge Medication List: Ambulatory Orders Atorvastatin Calcium 40 mg PO DAILY 10/15/17 Clopidogrel Bisulfate [Plavix] 75 mg PO DAILY 10/15/17 Isosorbide Mononitrate [Isosorbide Mononitrate ER] 120 mg PO DAILY 10/15/17 Primidone [Mysoline -] 50 mg PO BID 10/15/17 Sertraline HCl 50 mg PO DAILY 10/15/17 Acetaminophen [Tylenol .Regular Strength -] 650 mg PO Q6H PRN #30 tablet Amlodipine Besylate [Norvasc -] 5 mg PO DAILY #30 tablet 10/19/17 Aspirin Coated [Ecotrin -] 81 mg PO DAILY #30 tablet.ec 10/19/17 Docusate Sodium [Colace -] 100 mg PO DAILY #30 capsule 10/19/17 Oxycodone HCl [Roxicodone -] 5 mg PO Q4H PRN #15 tablet MDD 15 mg 10/19/17 Polyethylene Glycol 3350 [Miralax 119 gm Btl -] 17 gm PO DAILY PRN #1 bottle 11/04 Sennosides [Senna -] 2 tab PO HS PRN #60 tablet 10/19/17 This patient is new to me today: Yes Date on this admission: 10/19/17 Emergency Visit: Yes ED Registration Date: 10/15/17 Care time: The patient presented to the Emergency Department on the above date and was hospitalized for further evaluation of their emergent condition. Critical Care patient: No - Discharge Referral Referred to [facility] No
[2017-10-19] MEDS: POLYETHYLENE GLYCOL 3350 119 GM BTL PO PRN (15:35)
[2017-10-19 17:39] VITALS: BP 138/60; PULSE 70; TEMP 97.8
[2017-10-19] MEDS ORDERED: SERTRALINE HCL 50 MG TABLET (FP) PO SCH (22:00)
== END 2017-10-19 18:42 | DRG 481 ==
LOC: JER 01:02 → JERBED 03:05 → UNDOADMIN 03:05 → JERBED 03:14 → J6S 21:06
PROVIDERS: ADMIT Internal Medicine; ATTEND Hospitalist
PROC: 0QS606Z Reposition Right Upper Femur with Intramedullary Internal Fixation Device, Open Approach (ICD-10-PCS; principal; 2017-10-16 13:30)
PROC: 30233N1 Transfusion of Nonautologous Red Blood Cells into Peripheral Vein, Percutaneous Approach (ICD-10-PCS; 2017-10-19)
DX: S72.141A Displaced intertrochanteric fracture of right femur, initial encounter for closed fracture (principal); D62 Acute posthemorrhagic anemia; M62.82 Rhabdomyolysis; Z87.891 Personal history of nicotine dependence; C61 Malignant neoplasm of prostate; I25.10 Atherosclerotic heart disease of native coronary artery without angina pectoris; Z98.61 Coronary angioplasty status; I10 Essential (primary) hypertension; Z92.21 Personal history of antineoplastic chemotherapy; E78.5 Hyperlipidemia, unspecified; Z79.84 Long term (current) use of oral hypoglycemic drugs; G25.0 Essential tremor; R91.1 Solitary pulmonary nodule; K21.9 Gastro-esophageal reflux disease without esophagitis; F32.9 Major depressive disorder, single episode, unspecified; K59.00 Constipation, unspecified; Z79.4 Long term (current) use of insulin; E11.40 Type 2 diabetes mellitus with diabetic neuropathy, unspecified; W01.0XXA Fall on same level from slipping, tripping and stumbling without subsequent striking against object, initial encounter; Y93.89 Activity, other specified; Y99.8 Other external cause status; Y92.89 Other specified places as the place of occurrence of the external cause
CPT/HCPCS: 36415; 36430; 71045-TC; 73523-TC; 76000-TC; 80048; 80053; 80061; 81003; 82550; 82553; 82962; 83721; 83735; 84100; 84484; 85025; 85027; 85610; 85730; 86850; 86900; 86901; 86922; 93005; 93010; 94760; 97116-GP; 97161-GP; 99285-25; J1644; P9038; P9058